=== PATIENT | male | born 1945 | race Caucasian/White ===

== ENCOUNTER → 2016-06-28 | Day surgery (SDC) | payer OTHER ==
--- NOTE | 2016-06-27 17:15 | History & Physical Pre-Op ---
General Information and HPI History of Present Illness: Angel Luis is a 71-year-old diabetic with a long-standing and nonhealing ulceration to the plantar aspect of his foot. Patient is undergone an extended course of conservative care including local intensive wound care. This is consistent of periodic debridements negative pressure wound therapy. The patient will now require a debridement and application of Integra graft with negative pressure wound therapy. Allergies/Medications Allergies: Coded Allergies: No Known Allergies (05/05/16) Home Med list Aspirin (Aspirin*) 81 MG TAB.CHEW 1 TAB PO DAILY HEART HEALTH (Reported) Humulin N (Noa) (Humulin N) 100 UNIT/ML VIAL 34 U SC QPM DIABETES (Reported ) Humulin N (Noa) (Humulin N) 100 UNIT/ML VIAL 25 U SC DAILY DIABETES ( Reported) Hydrochlorothiazide 25 MG TABLET 1 TAB PO DAILY WATER PILL (Reported) Insulin Lispro (Humalog Kwikpen U-100) 100 UNIT/ML INSULN.PEN DIABETES ( Reported) please follow instructions for using insulin sliding scale as per your primary care provider. Lisinopril 5 MG TABLET 1 TAB PO DAILY HEART (Reported) Lovastatin 40 MG TABLET 1 TAB PO QPM CHOLESTEROL (Reported) with food Metformin HCl 500 MG TABLET 1 TAB PO DAILY DIABETES (Reported) Metformin HCl 500 MG TABLET 2 TAB PO QPM DIABETES (Reported) Multivit-Min/FA/Lycopen/Lutein (Centrum Silver Tablet) 0.4 MG-300 MCG-250 MCG TABLET 1 TAB PO DAILY SUPPLEMENT (Reported) [place]-3S/Dha/Epa/Fish Oil (Fish Oil 1,200 MG Softgel) 360-1,200MG CAPSULE 1 CAP PO DAILY SUPPLEMENT (Reported) Past History Medical History Neurological: NONE EENT: NONE Cardiovascular: hypertension, hyperlipidemia Respiratory: NONE Gastrointestinal: NONE Hepatic: NONE Renal: NONE Musculoskeletal: NONE Psychiatric: NONE Endocrine: diabetes Blood Disorders: NONE Cancer(s): NONE 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 History of MRSA: No History of VRE: No History of CDIFF: No Pneumonia Vaccine: 02/26/15 Surgical History Pertinent Surgical History: status post left foot Barone bunionectomy, fifth metatarsal head excision and first metatarsal phalangeal joint debridement 5 years prior to admission status post right foot revision Barone arthroplasty and second toe hammertoe correction Barone 5 years prior to admission status post right sesamoidectomy and hammertoe repair of the third through fifth toes four years prior to admission Past Family/Social History Family History Relations & Conditions if any Relation not specified for: *No pertinent family history Psychosocial History Services at Home None Functional Ability ADLs Independent: dressing, eating, toileting, bathing. Ambulation: independent, cane Review of Systems Review of Systems: Unremarkable except for that noted in history present illness Exam & Diagnostic Data Physical Exam: 6 cm x 4 cm x 1 cm full-thickness wound identified to the plantar aspect of the foot. There are tendinous and capsular structures identified at the superior medial aspect of the foot. No exposed bone identified no probing or undermining identified. There is superficial layer of slough overlying an otherwise granular wound bed. Assessment/Plan Assessment/Plan: Nonhealing ulcer plantar foot. A lengthy discussion reviewing both surgical and conservative options was held the patient at bedside and the patient elects to go forward surgery despite the risks. As Ranked By This Provider Problem List: 1. Cellulitis of foot 2. Non-pressure chronic ulcer of other part of right foot with fat layer exposed Attending MD Review Statement Attending Statement Attending MD Statement: examined this patient
[~2016-06-28] VITALS: Ht 188 cm; Wt 98.9 kg
[~2016-06-28] MED LIST: ASPIRIN81 M4 PO; CENTRUM SILVER1 EAC3 PO; FERROUS SULFAT325 M3 PO; FISH OIL 1,2001 EAC2 PO; HUMALOG KW100 UNIT/1; HUMULIN N100 UNIT/1 SC; HYDROCHLOROTHIA25 M1 PO; KEFLEX500 M1 PO; LISINOPRIL5 M1 PO; LOVASTATIN40 M1 PO; METFORMIN HCL500 M3 PO
--- NOTE | 2016-06-28 12:31 | Operative Report ---
Operative/Inv Procedure Report Surgery Date: 06/28/16 Name of Procedure: 1 open incision and drainage deep to the D fashion with exposure of the flexor tendon and tendon sheath multiple sites right foot 2 intraoperative administration of Integra allograft 3 intraoperative administration of negative pressure wound therapy 4 intraoperative administration of ankle block anesthesia 5 excisional debridement Pre-Operative Diagnosis: 1 open necrotic wound plantar right foot 2 diabetic peripheral neuropathy Post-Operative Diagnosis: Same Estimated Blood Loss: less than 50ml Surgeon/Landfill Gas Collection System Operator: GIOVANNY AGUILAR,ANGEL Martinez DPM Anesthesia: moderate sedation, block Operative/Procedure Note Note: After obtaining informed consent the patient was brought to the operating room and placed on the operating table in the supine position. The patient was then securely fastened to the operating table utilizing safety belt. After administration of IV sedation, 10 mL of 0.5% Marcaine plain was infiltrated about the patient's right ankle. The right foot and ankle within scrubbed prepped and draped in usual aseptic manner. Attention directed plantar aspect the right foot, where a large full-thickness necrotic was identified. A 15 blade [address] sharply revised skin margins. The dissection was then carried down deep to the D fashion with exposure of the flexor tendon and tendon sheath multiple sites, both proximally and distally. All necrotic nonviable and this infected tissue sharply evacuated from the wound bed. Nipple was then irrigated with 3 L Normal sterile saline fissure 50,000 units of bacitracin. Following this, the foot was redraped and the surgeon's top gloves were changed clean gloves. Any bleeding vessels identified were cauterized or ligated as encountered. A 6cm x 6cm Integra graft with applied to the wound bed with skin caleb utilized to stabilize the graft. Negative pressure wound therapy was then applied followed by 4 x 4's Kerlix and Coban. The patient was noted to tolerate both procedure and anesthesia well and the patient was transported from the operating room to recovery by sent stable best assess intact all digits right foot.
== END ==
LOC: STS 01:17
DX: L97.512 Non-pressure chronic ulcer of other part of right foot with fat layer exposed (principal); L03.115 Cellulitis of right lower limb; E11.42 Type 2 diabetes mellitus with diabetic polyneuropathy; Z79.4 Long term (current) use of insulin; I10 Essential (primary) hypertension; E78.5 Hyperlipidemia, unspecified
CPT/HCPCS: 36415; C9363; J0690; J2250

== ENCOUNTER → 2016-07-26 | Day surgery (SDC) | payer OTHER ==
--- NOTE | 2016-07-23 13:19 | History & Physical Pre-Op ---
General Information and HPI History of Present Illness: Mr. Marquez is a 71-year-old diabetic with a history of a long-standing and nonhealing ulceration to the plantar aspect of his right foot. The patient has been seen weekly by me in the wound Center for wound VAC dressing changes. The lesion is noted to measure approximately 8 cm x 6 cm. There has been interval granulation noted and the wound bed is now optimized for definitive closure consisting of split-thickness skin grafting. Allergies/Medications Allergies: Coded Allergies: No Known Allergies (05/05/16) Home Med list Aspirin (Aspirin*) 81 MG TAB.CHEW 1 TAB PO DAILY HEART HEALTH (Reported) Humulin N (Noa) (Humulin N) 100 UNIT/ML VIAL 34 U SC QPM DIABETES (Reported ) Humulin N (Noa) (Humulin N) 100 UNIT/ML VIAL 25 U SC DAILY DIABETES ( Reported) Hydrochlorothiazide 25 MG TABLET 1 TAB PO DAILY WATER PILL (Reported) Insulin Lispro (Humalog Kwikpen U-100) 100 UNIT/ML INSULN.PEN DIABETES ( Reported) please follow instructions for using insulin sliding scale as per your primary care provider. Lisinopril 5 MG TABLET 1 TAB PO DAILY HEART (Reported) Lovastatin 40 MG TABLET 1 TAB PO QPM CHOLESTEROL (Reported) with food Metformin HCl 500 MG TABLET 1 TAB PO DAILY DIABETES (Reported) Metformin HCl 500 MG TABLET 2 TAB PO QPM DIABETES (Reported) Multivit-Min/FA/Lycopen/Lutein (Centrum Silver Tablet) 0.4 MG-300 MCG-250 MCG TABLET 1 TAB PO DAILY SUPPLEMENT (Reported) [place]-3S/Dha/Epa/Fish Oil (Fish Oil 1,200 MG Softgel) 360-1,200MG CAPSULE 1 CAP PO DAILY SUPPLEMENT (Reported) Past History Medical History Neurological: NONE EENT: NONE Cardiovascular: hypertension, hyperlipidemia Respiratory: NONE Gastrointestinal: NONE Hepatic: NONE Renal: NONE Musculoskeletal: NONE Psychiatric: NONE Endocrine: diabetes Blood Disorders: NONE Cancer(s): 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 History of MRSA: No History of VRE: No History of CDIFF: No Pneumonia Vaccine: 02/26/15 Surgical History Pertinent Surgical History: status post left foot Barone bunionectomy, fifth metatarsal head excision and first metatarsal phalangeal joint debridement 5 years prior to admission status post right foot revision Barone arthroplasty and second toe hammertoe correction Barone 5 years prior to admission status post right sesamoidectomy and hammertoe repair of the third through fifth toes four years prior to admission Past Family/Social History Family History Relations & Conditions if any Relation not specified for: *No pertinent family history Psychosocial History Services at Home None Functional Ability ADLs Independent: dressing, eating, toileting, bathing. Ambulation: independent, cane Review of Systems Review of Systems: Unremarkable except for that noted in history of present illness Exam & Diagnostic Data Physical Exam: Lungs clear bilaterally. Heart sounds rate and rhythm regular. Lower extremity physical exam demonstrates weakly palpable pulses bilaterally. Both the results pedis and posterior tibial arteries demonstrate a 1/4 pulse. Patient is noted to have an 8 cm x 6 cm Hercules grade 2 ulceration to the plantar aspect of his right foot. The wound bed is noted to the deformity granular. There is a superficial layer of slough overlying the wound bed. No probing or undermining identified. No cellulitis noted. Minimal serous drainage identified. Assessment/Plan Assessment/Plan: Nonhealing ulcer plantar right foot. After lengthy discussion reviewing both surgical and conservative options, the patient elects to go forward surgery despite the risks. As Ranked By This Provider Problem List: 1. Non-pressure chronic ulcer of other part of right foot with fat layer exposed Attending MD Review Statement Attending Statement Attending MD Statement: examined this patient
[~2016-07-26] VITALS: Ht 188 cm; Wt 98.9 kg
--- NOTE | 2016-07-26 14:04 | Operative Report ---
Operative/Inv Procedure Report Surgery Date: 07/26/16 Name of Procedure: 1 split-thickness skin graft right foot 2 negative pressure wound therapy right foot 3 intraoperative administration of ankle block anesthesia Pre-Operative Diagnosis: 1 nonhealing ulcer plantar right foot 2 diabetic peripheral neuropathy Post-Operative Diagnosis: The same Estimated Blood Loss: scant Surgeon/Pleating Machine Operator: GIOVANNY AGUILAR,ANGEL Martinez DPM Anesthesia: moderate sedation, block Operative/Procedure Note Note: After obtaining informed consent the patient was brought to the operating room and placed on the operating table in the supine position. The patient isn't securely fastened to the operating table utilizing safety belt. After administration of IV sedation, 10 mL of 0.5% Marcaine plain was infiltrated about the patient's right ankle. The right foot ankle and leg were then scrubbed prepped and draped in usual aseptic manner. Attention was then directed to the plantar aspect of the right foot, where a 6 cm x 6 cm full- thickness Hercules grade 2 ulceration was identified. There is superficial slough overlying an otherwise granular wound bed. No probing or undermining identified. No cellulitis. An awl serous drainage noted. A curet was utilized to debride the wound bed and it was then irrigated with 3 L of normal sterile saline fissure 50,000 units of bacitracin. Following this, a 17 1007 inch split -thickness skin graft was elevated off the lateral leg and meshed at a ratio of 1-1/2-1. The skin graft was then placed at the recipient site and fixated at its margins with skin caleb followed by Adaptic and negative pressure wound therapy. The donor site was dressed with bacitracin Xeroform Kerlix and an [place] wrap. The patient was noted tolerate both procedure and anesthesia well and the patient was transported from the operating room to recovery by sent stable best assess intact all digits right foot.
== END ==
LOC: STS 01:39
DX: E11.621 Type 2 diabetes mellitus with foot ulcer (principal); E11.42 Type 2 diabetes mellitus with diabetic polyneuropathy; L97.512 Non-pressure chronic ulcer of other part of right foot with fat layer exposed; Z79.4 Long term (current) use of insulin; I10 Essential (primary) hypertension
CPT/HCPCS: J2001; J2250

== ENCOUNTER 2016-12-07 11:52 | Inpatient (IN) | payer OTHER ==
[~2016-12-07] VITALS: Ht 188 cm; Wt 101.6 kg
[~2016-12-07 11:52] MED LIST changes: -HUMALOG KW100 UNIT/1; +NOVOLOG FL100 UNIT/1 SC
--- NOTE | 2016-12-07 12:07 | ED UPPER/LOWER EXTREMITY COMPL ---
History of Present Illness General Chief Complaint: Lower Extremity Problems Stated Complaint: SIB MD PANDEY FOR INFECTION IN R FOOT Source: patient Exam Limitations: no limitations Vital Signs & Intake/Output Vital Signs & Intake/Output Vital Signs Date Time Temp Pulse Resp B/P B/P Pulse O2 O2 Flow FiO2 Mean Ox Delivery Rate 12/07 1552 99.4 80 16 135/72 98 Room Air 12/07 1159 100.0 97 18 123/74 97 Room Air Allergies Coded Allergies: No Known Allergies (05/05/16) Reconcile Medications Ascorbate Calcium (Vitamin C) 500 MG TABLET 1 TAB PO DAILY VITAMIN SUPPORT ( Reported) Aspirin (Aspirin*) 81 MG TAB.CHEW 1 TAB PO DAILY HEART HEALTH (Reported) Ferrous Sulfate 325 MG (65 MG IRON) TABLET 1 TAB PO DAILY SUPPLEMENT ( Reported) Humulin N (Noa) (Humulin N) 100 UNIT/ML VIAL 34 U SC QPM DIABETES (Reported ) Humulin N (Noa) (Humulin N) 100 UNIT/ML VIAL 25 U SC DAILY DIABETES ( Reported) Hydrochlorothiazide 25 MG TABLET 1 TAB PO DAILY WATER PILL (Reported) Insulin Aspart, Recombinant (Novolog Flexpen) (Unknown Strength) INSULN.PEN ( Unknown Dose) SC SEE SLIDING SCALE DIABETES (Reported) Lisinopril 5 MG TABLET 1 TAB PO DAILY HEART (Reported) Lovastatin 40 MG TABLET 1 TAB PO QPM CHOLESTEROL (Reported) with food Metformin HCl 500 MG TABLET 1 TAB PO DAILY DIABETES (Reported) Metformin HCl 500 MG TABLET 2 TAB PO QPM DIABETES (Reported) Multivit-Min/FA/Lycopen/Lutein (Centrum Silver Tablet) 0.4 MG-300 MCG-250 MCG TABLET 1 TAB PO DAILY SUPPLEMENT (Reported) [place]-3S/Dha/Epa/Fish Oil (Fish Oil 1,200 MG Softgel) 360-1,200MG CAPSULE 1 CAP PO DAILY SUPPLEMENT (Reported) Triage Note: 71 YO MALE TO ER C/O FEVERS AND ?INFECTION TO R FOOT. [facility] HAD FOOT SURGERY IN [facility] AND THEY REMOVED "SOME OF THE BOTTOM OF THE FOOT" STATES HE SAW DR BALTAZAR ON MONDAY WHO SAID IT WAS OK, STATES WENT TO HIS [employer] PROBATION OFFICER TODAY WHO SAID HE HAD A FEVER AND NEEDED TO COME IN FOR IV ANTIBIOTICS. TEMP 100.0 AT THIS TIME. R FOOT WRAPPPED IN TRIAGE AND NOT ABLE TO BE SEEN. Triage Nurses Notes Reviewed? yes Onset: Gradual Duration: constant Timing: single episode today Severity: moderate Severity Numbers: 5 HPI: Patient is a 71-year-old male with a past medical history of type 2 diabetes, hypertension hyperlipidemia and peripheral neuropathy where it was noted that in May 2016 patient had an incision and drainage to the right plantar aspect of foot by Dr. Baltazar in which approximately one month later he received a skin graft in the dictation of the procedure up report is noted below: Operative/Inv Procedure Report Surgery Date: 06/28/16 Name of Procedure: 1 open incision and drainage deep to the D fashion with exposure of the flexor tendon and tendon sheath multiple sites right foot 2 intraoperative administration of Integra allograft 3 intraoperative administration of negative pressure wound therapy 4 intraoperative administration of ankle block anesthesia 5 excisional debridement Pre-Operative Diagnosis: 1 open necrotic wound plantar right foot 2 diabetic peripheral neuropathy Post-Operative Diagnosis: Operative/Inv Procedure Report Surgery Date: 07/26/16 Name of Procedure: 1 split-thickness skin graft right foot 2 negative pressure wound therapy right foot 3 intraoperative administration of ankle block anesthesia Pre-Operative Diagnosis: 1 nonhealing ulcer plantar right foot 2 diabetic peripheral neuropathy Post-Operative Diagnosis: The same Estimated Blood Loss: scant Surgeon/Court Of Appeals Judge: GIOVANNY AGUILAR,ANGEL Martinez DPM Anesthesia: moderate sedation, block Patient states that he has been receiving wound care by a authorization representative Dr. Baltazar and authorization representative Dr. PANDEY where on Monday DR. PANDEY told patient that the wound is well-healing however in the last 24 hours patient has been developing swelling redness and a fever was noted today in the podiatry office at 102 Fahrenheit. Patient was strongly advised to present to the emergency room. No history of osteomyelitis. Denies any pain (BRANDON GARCIA) Past History Travel History Traveled to [place] past 21 day No Medical History Any Pertinent Medical History? 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 History of MRSA: No History of VRE: No History of CDIFF: No Pneumonia Vaccine: 02/26/15 Surgical History Surgical History: status post left foot Barone bunionectomy, fifth metatarsal head excision and first metatarsal phalangeal joint debridement 5 years prior to admission status post right foot revision Barone arthroplasty and second toe hammertoe correction Barone 5 years prior to admission status post right sesamoidectomy and hammertoe repair of the third through fifth toes four years prior to admission Psychosocial History Who do you live with Spouse Services at Home None What is your primary language Armenian Tobacco Use: Current Daily Use Daily Tobacco Use Amount/Type: =< 4 Cigarettes daily Family History Family History, If Any: Relation not specified for: *No pertinent family history Hx Contributory? No (BRANDON GARCIA) Review of Systems Review of Systems Constitutional: Reports: see HPI, fever. EENTM: Reports: no symptoms. Respiratory: Reports: no symptoms. Cardiovascular: Reports: no symptoms. Gastrointestinal/Abdominal: Reports: no symptoms. Genitourinary: Reports: no symptoms. Musculoskeletal: Reports: see HPI. Skin: Reports: see HPI. Neurological/Psychological: Reports: no symptoms. Hematologic/Endocrine: Reports: no symptoms. Immunological: Reports: no symptoms. All Other Systems: Reviewed and Negative (BRANDON GARCIA) Physical Exam Physical Exam General Appearance: no apparent distress, alert, comfortable Head: atraumatic Neurologic/Tendon: normal tendon functions, no evidence tendon injury Skin: warm/dry Comments: Well-developed well-nourished no apparent distress. HEENT: Atraumatic, extraocular motion intact Neck: Supple, no lymphadenopathy Back: Nontender Respiratory: No respiratory distress Neuro: Alert and oriented x3 Psych: Mood affect normal, normal memory normal judgment. Diagram Feet Bottom 1) Noted 3 cm open skin ulcer with noted surrounding erythema warmth and tenderness mild purulent discharge noted (BRANDON GARCIA) Progress Differential Diagnosis: arterial insufficiency, cellulitis, CHF, compartment syndrome, contusion, dislocation, DVT, fracture, gout, septic arthritis, sprain, tendon injury, OSTEOMYELITIS Plan of Care: Orders Procedure Date/time Status Consistent Carbohydrate 2 12/07 D Active LACTIC ACID 12/07 1533 Active Pathway - chart 12/07 1531 Active House Staff 12/07 1531 Active Patient Data 12/07 1531 Active CBC WITHOUT DIFFERENTIAL 12/07 1531 Active BASIC ELECTROLYTES PLUS BUN&CR 12/07 1531 Active Add-on Test (ER Only) 12/07 1528 Active URINE OSMOLALITY 12/07 1528 Active URINE LYTES, SPOT 12/07 1528 Active URINALYSIS 12/07 1528 Active Patient Data 12/07 1513 Active EKG 12/07 1441 Active OXYGEN SETUP (GEN) 12/07 1424 Active Saline Lock 12/07 1424 Active Admit to inpatient 12/07 1424 Active Vital Signs 12/07 1424 Active Activity/Ambulation 12/07 1424 Active Code Status 12/07 1424 Active Intake & Output 12/07 1410 Active MRI-RT FOOT W/O ALFIE 12/07 1345 Active SERUM OSMOLALITY 12/07 1240 Complete BLOOD CULTURE 12/07 1233 Active LACTIC ACID 12/07 1233 Complete C-REACTIVE PROTEIN 12/07 1233 Complete COMPREHENSIVE METABOLIC PANEL 12/07 1233 Complete CBC WITHOUT DIFFERENTIAL 12/07 1233 Complete VTE Mechanical Prophylaxis 12/07 UNK Active Current Medications Sig/Ruth Start time Last Medication Dose Stop Time Status Admin Enoxaparin Sodium 40 MG DAILY 12/08 1000 AC (Lovenox) Acetaminophen 650 MG Q6P PRN 12/07 1530 AC (Tylenol) Ibuprofen 600 MG Q6P PRN 12/07 1530 AC (Motrin) Morphine Sulfate 1 MG Q6-PRN PRN 12/07 1530 AC (Morphine) Laboratory Tests 12/07/16 1240: Anion Gap 13, Estimated GFR > 60, BUN/Creatinine Ratio 18.6, Glucose 242 H, Serum Osmolality 276 L, Lactic Acid 2.1, Calcium 9.3, Total Bilirubin 0.6, AST 36, ALT 38, Alkaline Phosphatase 58, C-Reactive Prot, Quant 8.4 H, Total Protein 7.2, Albumin 4.2, Globulin 3.0, Albumin/Globulin Ratio 1.4, CBC w Diff NO MAN DIFF REQ, RBC 4.64 L, MCV 79.0 L, MCH 26.1 L, RDW 16.3 H, MPV 8.6, Gran % 82.0 H, Lymphocytes % 6.8 L, Monocytes % 10.5 H, Eosinophils % 0, Basophils % 0.7, Absolute Granulocytes 11.1 H, Absolute Lymphocytes 0.9 L, Absolute Monocytes 1.4 H, Absolute Eosinophils 0, Absolute Basophils 0.1, PUBS MCHC 33.1 Microbiology 12/07 1311 BLOOD: Blood Culture - RECD 12/07 1240 BLOOD: Blood Culture - RECD Discussed patient with Dr. Baltazar who is aware of patient's admission and which x-ray shows erosive changes of the bone patient has also redness swelling and discharged to the chronic open ulcer on patient's right plantar foot. Antibiotics at this time will be withheld (BRANDON GARCIA) Diagnostic Imaging: Viewed by Me: Radiology Read. Radiology Impression: acute abnormality Comments: PATIENT: BRANDON CARMEN PRESENT AGE: 71 PATIENT ACCOUNT NO: [id number] : 47 LOCATION: [facility] ORDERING PHYSICIAN: BRANDON LANG SERVICE DATE: 12/07/16 EXAM TYPE: RAD - XRY-FOOT COMPLETE, R EXAMINATION: XR FOOT, RIGHT CLINICAL INFORMATION: Open wound over plantar second-fourth metatarsals. Evaluate for osteomyelitis. COMPARISON: Radiographs of the foot from 06/08/2016. MR images of the foot from 05/02/2016. TECHNIQUE: Right foot, 3 views FINDINGS: There is chronic hyperextension of the great toe metatarsophalangeal joint. Again noted are chronic deformities of the 2nd - 5th proximal interphalangeal joints, possibly due to remote surgical arthroplasties. Compared to 06/08/2016, there are new erosions of the third metatarsal head and base of the third proximal phalanx with new lateral displacement of the phalanx. Erosions have relatively sharply defined borders, which suggests these are not acute erosions. No soft tissue emphysema. There is generalized soft tissue swelling of the forefoot. IMPRESSION: Compared to 06/08/2016, there are new metatarsal and phalangeal erosions of the third metatarsophalangeal joint, suspicious for septic arthritis and osteomyelitis. (BRANDON GARCIA) Departure Departure Disposition: STILL A PATIENT Condition: Critical Clinical Impression Primary Impression: Osteomyelitis of right foot Referrals: AMOS SESAY MD (PCP/Family) Departure Forms: Customer Survey General Discharge Information Admission Note Spoke With: NAN JOSEPH MD Documentation of Exam: Documentation of any treatments & extenuating circumstances including Concerns Regarding Discharge (functional status, medication knowledge or non-compliance, living conditions, etc.) that warrant an admission rather than observation: [ Discussed admission with who agrees for general admission for concerns of osteomyelitis which patient requires MRI bone culture, IV antibiotics, podiatry consultation and infectious disease consultation.] (BRANDON GARCIA) PA/PAPER SHEETER Co-Sign Statement Statement: ED Attending supervision documentation- x I saw and evaluated the patient. I have also reviewed all the pertinent lab results and diagnostic results. I agree with the findings and the plan of care as documented in the PA's/PAPER SHEETER's documentation. [] I have reviewed the ED Record and agree with the PA's/PAPER SHEETER's documentation. [] Additions or exceptions (if any) to the PAs/PAPER SHEETER's note and plan are summarized below: [] (JASS ALVAREZ,INDU) Critical Care Note Critical Care Note Critical Care Time: 30-74 min (BRANDON GARCIA)
[2016-12-07] MEDS ORDERED: FERROUS SULFAT325 M3 PO (12:22)
[2016-12-07] MEDS ORDERED: VITAMIN C500 M6 PO (12:22)
--- NOTE | 2016-12-07 13:14 | RADIOLOGY REPORT ---
EXAMINATION: XR FOOT, RIGHT CLINICAL INFORMATION: Open wound over plantar second-fourth metatarsals. Evaluate for osteomyelitis. COMPARISON: Radiographs of the foot from 06/08/2016. MR images of the foot from 05/02/2016. TECHNIQUE: Right foot, 3 views FINDINGS: There is chronic hyperextension of the great toe metatarsophalangeal joint. Again noted are chronic deformities of the 2nd - 5th proximal interphalangeal joints, possibly due to remote surgical arthroplasties. Compared to 06/08/2016, there are new erosions of the third metatarsal head and base of the third proximal phalanx with new lateral displacement of the phalanx. Erosions have relatively sharply defined borders, which suggests these are not acute erosions. No soft tissue emphysema. There is generalized soft tissue swelling of the forefoot. IMPRESSION: Compared to 06/08/2016, there are new metatarsal and phalangeal erosions of the third metatarsophalangeal joint, suspicious for septic arthritis and osteomyelitis.
[2016-12-07 13:18] LABS: ABSOLUTE BASOPHIL COUNT 0.1 /CUMM (0.0-0.2); ABSOLUTE EOSINOPHIL COUNT 0 /CUMM (0.0-0.7); ABSOLUTE GRANULOCYTE CT 11.1 /CUMM (1.4-6.5); ABSOLUTE LYMPH COUNT 0.9 /CUMM (1.2-3.4); ABSOLUTE MONOCYTE COUNT 1.4 /CUMM (0.10-0.60); BASOPHIL % 0.7 % (0.0-2.0); EOSINOPHIL % 0 % (0-5); HEMATOCRIT 36.6 % (42-52); MEAN CORPUSCULAR HGB 26.1 PG (27.0-31.0); MEAN CORPUSCULAR HGB CONC 33.1 G/DL (33.0-37.0); MEAN PLATELET VOLUME 8.6 FL (7.4-10.4); PLATELET COUNT 436 /CUMM (130-400); RBC DISTRIBUTION WIDTH 16.3 % (11.5-14.5); RED BLOOD CELL CT 4.64 /CUMM (4.70-6.10); WHITE BLOOD CELL COUNT 13.5 /CUMM (4.8-10.8)
--- NOTE | 2016-12-07 16:53 | MRI REPORT ---
EXAMINATION: MRI FOOT WITHOUT CONTRAST, RIGHT CLINICAL INFORMATION: Right plantar foot osteomyelitis. COMPARISON: Radiographs 12/07/2016. MRI 05/02/2016. TECHNIQUE: MRI without contrast is performed on the right foot. Image quality is degraded by patient motion artifact. No contrast was administered. FINDINGS: There is a large complex effusion of the 3rd MTP joint with erosion, edema and loss of T1 marrow signal involving the 3rd metatarsal head and the proximal phalanx compatible with a septic joint and osteomyelitis. Marrow edema extends to the proximal aspect of the 3rd metatarsal. Complex fluid from the 3rd MTP joint extends medially along the plantar aspect of the 2nd MTP joint, likely communicating with the joint, presumably a septic joint as well although no convincing evidence of associated osteomyelitis. There is marrow edema at the plantar aspect of the 4th metatarsal head which may be reactive although early osteomyelitis cannot be excluded. [id number] 1st MTP joint and hallux sesamoid osteoarthritis. The joint is held in near 90 degrees of extension. Diffuse edema as well as fatty atrophy of the intrinsic muscles of the foot and along the dorsal subcutaneous fat which could represent extension of soft tissue infection. This is similar to the previous study. IMPRESSION: Progression since 05/02/2016, now with evidence of a septic 3rd MTP joint with osteomyelitis of the metatarsal head and proximal phalanx. The fluid collection extends along the plantar aspect medially, with a probable septic arthritis of the 2nd MTP joint although no convincing evidence of an associated osteomyelitis of this joint. There is marrow edema at the plantar aspect of the 4th metatarsal head which may be reactive although early osteomyelitis cannot be excluded.
--- NOTE | 2016-12-07 17:29 | History & Physical ---
YI ALVAREZ,SOPHIA 12/07/16 5072: General Information and HPI History of Present Illness: Pt is a 71 y/o male with PMH of DM recent HbA1c: 8.1, peripheral neuopathy, h/o of osteomyelitis of R foot in 2015 requiring debridement, IV antibiotic therapy and skin grafting in May 2016 presents to the ED with foul smelling discharge at site of skin graft. Pt sees Dr. Jones and Dr. Singh for treatment of his feet. Pt was sent from Dr. Singh's office. Pt states there was increased discharge that was foul smelling when assessed by Dr. Singh. Pt's temp in the office was 102. Pt states he has had chills and sweats. Denies trauma to the foot however pt states he is unable to feel the bottom of his feet. Pt denies chest pain, SOB, n/v/c/d or urinary symptoms. In the ED: 100.0, pulse 97, sedimentation rate 18, blood pressure 123/74 on room air. Pertinent labs on admission leukocytosis: 13.5, H&H low but stable. Hyponatremia 129, blood glucose level :249, normal lactic acid on admission Right foot x-ray: Compared to 06/08/2016, there are new metatarsal and phalangeal erosions of the third metatarsophalangeal joint, suspicious for septic arthritis and osteomyelitis. Allergies/Medications Allergies: Coded Allergies: No Known Allergies (05/05/16) Home Med list Ascorbate Calcium (Vitamin C) 500 MG TABLET 1 TAB PO DAILY VITAMIN SUPPORT ( Reported) Aspirin (Aspirin*) 81 MG TAB.CHEW 1 TAB PO DAILY HEART HEALTH (Reported) Ferrous Sulfate 325 MG (65 MG IRON) TABLET 1 TAB PO DAILY SUPPLEMENT ( Reported) Humulin N (Noa) (Humulin N) 100 UNIT/ML VIAL 34 U SC QPM DIABETES (Reported ) Humulin N (Noa) (Humulin N) 100 UNIT/ML VIAL 25 U SC DAILY DIABETES ( Reported) Hydrochlorothiazide 25 MG TABLET 1 TAB PO DAILY WATER PILL (Reported) Insulin Aspart, Recombinant (Novolog Flexpen) (Unknown Strength) INSULN.PEN ( Unknown Dose) SC SEE SLIDING SCALE DIABETES (Reported) Lisinopril 5 MG TABLET 1 TAB PO DAILY HEART (Reported) Lovastatin 40 MG TABLET 1 TAB PO QPM CHOLESTEROL (Reported) with food Metformin HCl 500 MG TABLET 1 TAB PO DAILY DIABETES (Reported) Metformin HCl 500 MG TABLET 2 TAB PO QPM DIABETES (Reported) Multivit-Min/FA/Lycopen/Lutein (Centrum Silver Tablet) 0.4 MG-300 MCG-250 MCG TABLET 1 TAB PO DAILY SUPPLEMENT (Reported) [place]-3S/Dha/Epa/Fish Oil (Fish Oil 1,200 MG Softgel) 360-1,200MG CAPSULE 1 CAP PO DAILY SUPPLEMENT (Reported) Past History Travel History Traveled to [place] past 21 day No Medical History Neurological: NONE EENT: NONE Cardiovascular: hypertension, hyperlipidemia Respiratory: NONE Gastrointestinal: NONE Hepatic: NONE Renal: NONE Musculoskeletal: NONE Psychiatric: NONE Endocrine: diabetes Blood Disorders: NONE Cancer(s): 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 History of MRSA: No History of VRE: No History of CDIFF: No Pneumonia Vaccine: 02/26/15 Surgical History Surgical History: status post left foot Barone bunionectomy, fifth metatarsal head excision and first metatarsal phalangeal joint debridement 5 years prior to admission status post right foot revision Barone arthroplasty and second toe hammertoe correction Barone 5 years prior to admission status post right sesamoidectomy and hammertoe repair of the third through fifth toes four years prior to admission Past Family/Social History Family History Relations & Conditions if any Relation not specified for: *No pertinent family history Psychosocial History Services at Home: None Functional Ability ADLs Independent: dressing, eating, toileting, bathing. Ambulation: independent, cane Review of Systems Review of Systems Constitutional: Reports: see HPI, chills, diaphoresis, fever. Cardiovascular: Denies: chest pain. Respiratory: Denies: short of breath. GI: Denies: abdominal pain, constipation, diarrhea, nausea. Genitourinary: Denies: no symptoms. Exam & Diagnostic Data Last 24 Hrs of Vital Signs/I&O Vital Signs Date Time Temp Pulse Resp B/P B/P Pulse O2 O2 Flow FiO2 Mean Ox Delivery Rate 12/07 2150 99.8 74 19 114/62 96 Room Air 12/07 1812 99.8 83 19 122/68 96 Room Air 12/07 1743 100.4 90 20 142/68 98 Room Air 12/07 1552 99.4 80 16 135/72 98 Room Air 12/07 1159 100.0 97 18 123/74 97 Room Air Intake & Output 12/08 0800 0713 0000 12/07 1600 Intake Total 480 1000 Output Total 475 Balance 5 1000 Intake, IV 1000 Intake, Oral 480 Output, Urine 475 Patient 224 lb 224 lb Weight Weight Reported by Patient Reported by Patient Measurement Method Physical Exam General Appearance Alert, Oriented X3, Cooperative, No Acute Distress HEENT Atraumatic, PERRLA, EOMI, Mucous Membr. moist/pink Cardiovascular Regular Rate, Normal S1, Normal S2 Lungs Clear to Auscultation Abdomen Normal Bowel Sounds, Soft, No Tenderness Neurological Normal Speech, Strength at 5/5 X4 Ext, Normal Tone, Cranial Nerves 3-12 NL, pt has decreased sensation to touch up to ankle on R foot and has no sensation on plantar surface of L foot. Extremities No Edema, Normal Pulses, ulcer with no active drainage and minimal blood seen on dressing Vascular Normal Pulses Assessment/Plan Assessment: Pt is a 71 y/o male with PMH significant for DM (HbA1c: 8.1), peripheral neuropathy, previous history of osteomyelitis on R foot w/skin graft admitted to ED for increase foul smelling discharge from site of previous skin graft and fever. Pt admitted to the general medical floor for management of the followin. Possible osteomyelitis of R foot vs nonhealing ulcer/cellulitis - Xray shows new bony changes indicative for septive arthritis or osteomyelitis. - MRI shows Progression since 05/02/2016, now with evidence of a septic 3rd MTP joint with osteomyelitis of the metatarsal head and proximal phalanx. The fluid collection extends along the plantar aspect medially, with a probable septic arthritis of the 2nd MTP joint although no convincing evidence of an associated osteomyelitis of this joint. There is marrow edema at the plantar aspect of the 4th metatarsal head which may be reactive although early osteomyelitis cannot be excluded - Dr. Jones has been notified - Trend WBC: currently 13.2, lactic acid: 2.0 CRP: 8.4 - Check ESR - No antibiotics and keep NPO in preparation for possible surgery tomorrow 2. Euvolemic Hyponatremia: - pt's current Na: 129 with low serum osmolality: 276 indicating true hyponatremia - previous admission Na: 134 - urine lytes and urine osmolality 3. H/O DM - start on novology SS w/ accu-checks - NPO after midnight, start pt on NPO, insulin SS w/ D5 1/2NS 4. H/O HTN - continue home meds 5. H/O HLD - continue home meds DVT PPx: Lovenox - held for possible surgery tomorrow, use ALPs Diet: carbohydrate Code: Full - As Ranked By This Provider Problem List: 1. Osteomyelitis of right foot 2. Hyponatremia 3. Diabetes 4. Hypertension Core Measures/Miscellaneous Cerebrovascular Accident CVA/TIA Diagnosis: No Congestive Heart Failure CHF Diagnosis: No VTE (View Protocol) VTE Risk Factors: Age > 40 No Mech VTE prophylaxis d/t: VTE low risk No VTE Pharm Prophylaxis d/t: Surgical contraindication VTE Diagnosis: No VTE Type: NONE VTE Confirmed by (Test): NONE Sepsis (View Protocol) Severe Sepsis Present: No BC x2: Yes Lactic Acid x2: Yes IV ABX Broad Spectrum: No Septic Shock Septic Shock Present: No Miscellaneous Documentation Attending Case Discussed With: NAN JOSEPH MD Primary Care Physician: AMOS SESAY MD Level of Patient Care: General Surgical Consults Needed: Consulting Specialty: Podiatry Consulting Physician: ISAURA Canchola 12/07/16 1732: Core Measures/Miscellaneous Acute Coronary Syndrome ACS Diagnosis: No Miscellaneous Documentation Patient sees these Specialists Not available at this time Resident Review Statement Resident Statement: examined this patient, discussed with technology risk intern, agreed with technology risk intern Other Findings: Patient is a 71-year-old gentleman with a past medical history significant for insulin-dependent diabetes mellitus complicated by peripheral neuropathy, nonhealing ulcer secondary to osteomyelitis of the right foot status post surgical debridement and skin graft, history of hypertension and hyperlipidemia was sent in to the ED from 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 As mentioned above patient was diagnosed with right foot osteomyelitis in April 2016 had a surgical debridement done and was discharged home for appropriate for 4 weeks of iv antibiotics. Patient had skin graft of wound done in May this year. Patient was last seen by Dr. Peters this Monday, who told him that wound is healing well. Today he was seen at his other form designer office Dr. Sanchez, and he was found to be febrile to 102 and the wound also seem to be infected, so was sent to the ED for further evaluation. In the ED patient did not report any recent trauma any recent infections. He reported some chills without any fever. Other review of system was negative. Vitals on admission temperature 100.0, pulse 97, sedimentation rate 18, blood pressure 123/74 on room air. General Appearance: Alert, No Acute Distress Skin: Grossly normal HEENT: PEERLA Neck: Supple, No JVD Cardiovascular: Regular Rate, Normal S1, Normal S2, No Murmurs Lungs: Lungs clear to auscultation bilaterally on exam. Abdomen: Normal Bowel Sounds, Soft, No Tenderness Neurological: Normal Speech, Strength at 5/5 X4 Ext, Cranial Nerves 3-12 NL, Reflexes 2+ Extremities: ulcer on the bottom of the right foot without any drainage Vascular: Normal Pulses Pertinent labs on admission leukocytosis: 13.5, H&H low but stable. Hyponatremia 129, blood glucose level :249, normal lactic acid on admission Right foot x-ray :Compared to 06/08/2016, there are new metatarsal and phalangeal erosions of the third metatarsophalangeal joint, suspicious for septic arthritis and osteomyelitis. Assessment and plan Patient is a 71-year-old gentleman with a past medical history significant for insulin-dependent diabetes mellitus complicated by peripheral neuropathy, nonhealing ulcer secondary to osteomyelitis, history of hypertension and lipidemia presented to the ED for the evaluation of infection of the wound on the right foot. Problem list Possible osteomyelitis of the right foot Euvolemic Hyponatremia History of insulin-dependent diabetes mellitus History of hypertension hyperlipidemia plan : Possible osteomyelitis of the right foot * Admit the patient to [facility] floor. * Dr. Lima has been informed about patient's admission, he will see the pt . * Check ESR * Patient had an MRI of the right foot we'll follow-up the results * Keep the patient off antibiotics for now for possible surgical intervention tomorrow. * Keep the patient nothing by mouth at midnight. Euvolemic Hyponatremia * Check urine lites and urine osmolality and serum hospitality History of insulin-dependent diabetes mellitus * Start the patient on NovoLog sliding scale with Accu-Cheks. * Equivalent conversion of home dose of Humalog(25 units of Levemir in the morning and 32 units at bedtime. * Nothing by mouth from midnight start the patient on nothing by mouth insulin sliding scale with D5 half normal saline History of hypertension hyperlipidemia * Continue with home dose of lisinopril and lovastatin. Mild to moderate pain controlled with oxycodone and IV morphine DVT prophylaxis with subcutaneous Lovenox(hold Lovenox for possible biopsy tomorrow/surgical intervention) Patient full code JAKE ALVAREZNAN 12/08/16 1339: Attending MD Review Statement Attending Statement Attending MD Statement: examined this patient, discuss w/resident/PA/WEB UI DESIGNER, agreed w/resident/PA/WEB UI DESIGNER, reviewed EMR data (avail) Attending Assessment/Plan: 71M HTN, DM, chronic lower extremity ulcers, history of osteomyelitis of the foot growing Group B step and coag negative staph, presenting now with edema and erythema to a chronic right foot ulcer with fever 102 in form designer office ( afebrile here), WBC 13.5. Admitted for likely osteomyelitis. Ordered MRI, podiatry consult, holding antibiotics, ID consult, glucose control.
--- NOTE | 2016-12-07 17:48 | Cons- Podiatry ---
General Information and HPI Consulting Request Date of Consult: 12/07/16 Requested By: NAN JOSEPH MD History of Present Illness: Angel Luis is a 71-year-old male with a history of diabetes and a long-standing nonhealing ulceration plantar aspect of his right foot. The patient presented months ago with a plantar space abscess and underwent an open I&D. He underwent local intensive wound care, including periodic debridements, negative pressure wound therapy and total contact casting. The patient was apparently progressing well, until he developed redness and swelling on Monday with subjective chills and fever. 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 Allergies/Medications Allergies: Coded Allergies: No Known Allergies (05/05/16) Home Med List: Ascorbate Calcium (Vitamin C) 500 MG TABLET 1 TAB PO DAILY VITAMIN SUPPORT ( Reported) Aspirin (Aspirin*) 81 MG TAB.CHEW 1 TAB PO DAILY HEART HEALTH (Reported) Ferrous Sulfate 325 MG (65 MG IRON) TABLET 1 TAB PO DAILY SUPPLEMENT ( Reported) Humulin N (Noa) (Humulin N) 100 UNIT/ML VIAL 34 U SC QPM DIABETES (Reported ) Humulin N (Noa) (Humulin N) 100 UNIT/ML VIAL 25 U SC DAILY DIABETES ( Reported) Hydrochlorothiazide 25 MG TABLET 1 TAB PO DAILY WATER PILL (Reported) Insulin Aspart, Recombinant (Novolog Flexpen) (Unknown Strength) INSULN.PEN ( Unknown Dose) SC SEE SLIDING SCALE DIABETES (Reported) Lisinopril 5 MG TABLET 1 TAB PO DAILY HEART (Reported) Lovastatin 40 MG TABLET 1 TAB PO QPM CHOLESTEROL (Reported) with food Metformin HCl 500 MG TABLET 1 TAB PO DAILY DIABETES (Reported) Metformin HCl 500 MG TABLET 2 TAB PO QPM DIABETES (Reported) Multivit-Min/FA/Lycopen/Lutein (Centrum Silver Tablet) 0.4 MG-300 MCG-250 MCG TABLET 1 TAB PO DAILY SUPPLEMENT (Reported) [place]-3S/Dha/Epa/Fish Oil (Fish Oil 1,200 MG Softgel) 360-1,200MG CAPSULE 1 CAP PO DAILY SUPPLEMENT (Reported) Past History Medical History Neurological: NONE EENT: NONE Cardiovascular: hypertension, hyperlipidemia Respiratory: NONE Gastrointestinal: NONE Hepatic: NONE Renal: NONE Musculoskeletal: NONE Psychiatric: NONE Endocrine: diabetes Blood Disorders: NONE Cancer(s): 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 Surgical History Pertinent Surgical History: status post left foot Barone bunionectomy, fifth metatarsal head excision and first metatarsal phalangeal joint debridement 5 years prior to admission status post right foot revision Barone arthroplasty and second toe hammertoe correction Barone 5 years prior to admission status post right sesamoidectomy and hammertoe repair of the third through fifth toes four years prior to admission Family History Relations & Conditions If Any: Relation not specified for: *No pertinent family history Psychosocial History Services at Home: None Functional Ability ADLs Independent: dressing, eating, toileting, bathing. Ambulation: independent, cane Review of Systems Review of Systems: Unremarkable except noted history of present illness Exam & Diagnostic Data Vital Signs and I&O Vital Signs Date Time Temp Pulse Resp B/P B/P Pulse O2 O2 Flow FiO2 Mean Ox Delivery Rate 12/07 1743 100.4 90 20 142/68 98 Room Air 12/07 1552 99.4 80 16 135/72 98 Room Air 12/07 1159 100.0 97 18 123/74 97 Room Air Intake & Output 12/07 1600 12/07 0800 12/07 0000 12/06 1600 12/06 0800 12/06 0000 Intake Total 1000 Output Total Balance 1000 Intake, IV 1000 Patient 224 lb Weight Weight Reported by Patient Measurement Method Physical Exam: Hercules grade 2 ulceration noted to the plantar forefoot right. No probing or undermining identified. There is moderate amount of drainage identified. Edema and cellulitis noted extending to the dorsal plantar midfoot. MRI findings demonstrate osteomyelitis of the third metatarsal head and base of proximal phalanx of the third digit, second metatarsal phalangeal joint sepsis and possible early osteomyelitis to the fourth metatarsal head. Assessment/Plan Assessment/Plan Cellulitis and right foot osteomyelitis. Patient nothing by mouth past midnight for open TMA tomorrow. Please hold antibiotics pending cultures. Consult Acknowledgment - Thank you for your consult request. Attending MD Review Statement Attending Statement Attending MD Statement: examined this patient
[2016-12-07 18:12] VITALS: BP 122/68
[2016-12-07 20:47] LABS: ABSOLUTE BASOPHIL COUNT 0.1 /CUMM (0.0-0.2); ABSOLUTE EOSINOPHIL COUNT 0 /CUMM (0.0-0.7); ABSOLUTE GRANULOCYTE CT 10.4 /CUMM (1.4-6.5); ABSOLUTE LYMPH COUNT 1.4 /CUMM (1.2-3.4); ABSOLUTE MONOCYTE COUNT 1.4 /CUMM (0.10-0.60); BASOPHIL % 0.4 % (0.0-2.0); EOSINOPHIL % 0.1 % (0-5); GRANULOCYTE % 78.4 % (42.2-75.2); MEAN CORPUSCULAR HGB 26.1 PG (27.0-31.0); MEAN CORPUSCULAR HGB CONC 32.7 G/DL (33.0-37.0); MEAN CORPUSCULAR VOLUME 79.9 FL (80.0-94.0); MEAN PLATELET VOLUME 8.7 FL (7.4-10.4); PLATELET COUNT 374 /CUMM (130-400); RBC DISTRIBUTION WIDTH 15.7 % (11.5-14.5); RED BLOOD CELL CT 4.13 /CUMM (4.70-6.10); WHITE BLOOD CELL COUNT 13.2 /CUMM (4.8-10.8)
[2016-12-07 21:50] VITALS: BP 114/62
[2016-12-08 06:29] VITALS: BP 110/60
--- NOTE | 2016-12-08 07:36 | PN- Housestaff ---
Subjective Follow-up For: RLE osteomyelitis Subjective: I saw and examined the patient today. States he is doing well. Denies fever, chills, SOB, chest pain, n/v/d, or leg/foot pain. Review of Systems Constitutional: Denies: see HPI. Objective Last 24 Hrs of Vital Signs/I&O Vital Signs Date Time Temp Pulse Resp B/P B/P Pulse O2 O2 Flow FiO2 Mean Ox Delivery Rate 12/08 1406 98.7 64 20 110/60 94 Room Air 12/08 0956 110/60 12/08 0629 99.6 71 20 110/60 95 Room Air 12/07 2150 99.8 74 19 114/62 96 Room Air Intake & Output 12/08 1600 12/08 0800 12/08 0000 Intake Total 600 375 480 Output Total 600 225 475 Balance 0 150 5 Intake, IV 600 375 Intake, Oral 0 480 Number 1 Bowel Movements Output, Urine 600 225 475 Patient 224 lb 224 lb Weight Weight Reported by Patient Measurement Method Physical Exam General Appearance: Alert, Oriented X3, Cooperative, No Acute Distress Cardiovascular: Regular Rate, Normal S1, Normal S2 Lungs: Clear to Auscultation Abdomen: Normal Bowel Sounds, Soft, No Tenderness Extremities: Plantar surface of right foot has a nonhealing ulcer with no active drainage. , pt has no sensation in his feet Vascular: Normal Pulses Assessment/Plan Assessment: Pt is a 71 y/o male with PMH signficant for DM insulin dependent (HbA1c: 8.1), repeated osteomyelitis of both feet, with recent skin graft in May of [address] Jones and Dr. Singh admitted for osteomyelitis. Pt is admitted to the general medicine floor for management of the followin. RLE Osteomyeltis- pt came in with suspected osteomyelitis of the R foot confirmed by MRI - Pt has been afebrile, normotensive with a normal HR and RR, saturating in mid90s on room air - Pt has leukocytosis w/o bandemia - ESR elevated at 35 - CRP elevated at 8.4 - Blood cultures sent, no growth to date - Will keep pt off antibiotics until biopsy of bone - Will keep pt NPO until TMA w/biopsy with Dr. Jones this afternoon - Will follow up biopsy results and initiate antibiotics if necessary - Will consult ID for recommendations 2. Euvolemic Hyponatremia- pt's BEP revealed a Na of 129 on admission. Pt's corrected Na for hyperglycemia: 131. Pt has been on a thiazide diuretic with low serum osmolality, high urine osmolality with high urine Na >40 indicating inappropriate retention of water as seen in SIADH or interference with NaCl cotransporter which occurs with thiazides. Other causes of euvolemic hyponatremia with elevated urine na and urine osm includes glucocorticoid deficiency and hypothyroidism. - repeat BEP: Na: 127 - baseline Na: 134 to 137 (from previous admission) - urine osmolality: 596 - serum osmolality: 256 - Urine Na: 121 - FeNa: 0.7 - will discontinue thiazide diuretic - pt currently on D5 1/2NS switched to D5 NS prior to biopsy - will recheck Na tonight, if pt's Na is not improving will fluid restrict 3. H/O DM - start on novology SS w/ accu-checks - on D5 NS - on levemir 25 units 4. H/O HTN - continue lisinopril 5mg daily - holding thiazide due to hyponatremia 5. H/O HLD - continue atorvastatin 10mg daily DVT PPx: Lovenox Diet: carbohydrate Code: Full Problem List: 1. Diabetes 2. Hypertension 3. Osteomyelitis of right foot 4. Hyponatremia Pain Ratin Pain Location: none Pain Goal: Remain pain free Pain Plan: none Tomorrow's Labs & Rationales: [employer] Consulting Request: Consulting Specialty: Podiatry Consulting Physician: Dr. Jones
--- NOTE | 2016-12-08 13:40 | Admission Certification ---
Admission Certification Certification Statement - As attending physician, I certify that at the time of - admission, based on clinical presentation, severity of - symptoms, need for further diagnostic testing and - therapeutic interventions, and risk of adverse outcomes - without in-hospital treatment, in my clinical assessment, - this patient requires an acute hospital stay for a minimum - of two nights or longer. I have also considered psychsocial - factors such as support system, advanced age, financial - issues, cognitive issues, and failed out-patient treatments, - past re-admission history, safety of patient, and lack of - compliance as applicable. Specific rationale supporting this admission is: Sepsis secondary to acute osteomyelitis
[2016-12-08 14:06] VITALS: BP 110/60
--- NOTE | 2016-12-08 14:40 | PN- Att Addend ---
Attending Addendum Attending Brief Note Patient seen and examined, Denies any pain in right foot. Patient is admitted with unstable like to send has a long-standing history of diabetes. Vital Signs Date Time Temp Pulse Resp B/P B/P Pulse O2 O2 Flow FiO2 Mean Ox Delivery Rate 12/08 1406 98.7 64 20 110/60 94 Room Air 12/08 0956 110/60 12/08 0629 99.6 71 20 110/60 95 Room Air 12/07 2150 99.8 74 19 114/62 96 Room Air 12/07 1812 99.8 83 19 122/68 96 Room Air 12/07 1743 100.4 90 20 142/68 98 Room Air 12/07 1552 99.4 80 16 135/72 98 Room Air on exam: aox3, nad. cv; s1,s2, rrr resp; clear abd; soft, nt, bs+ ext; no edema. skin; + wound on planter aspect of right food. Laboratory Tests 12/07 12/07 12/07 1904 1904 184 Chemistry Lactic Acid (0.7 - 2.1 mmol/L) 2.0 Hematology ESR W[place]gren (0 - 10 MM) 35 H Urines Urine Color (YEL,AMB,STR) YEL Urine Clarity (CLEAR) CLEAR Urine pH (5.0 - 8.0) 6.5 Ur Specific [place] (1.001 - 1.035) 1.015 Urine Protein (NEG,<30 MG/DL) TRACE H Urine Ketones (NEG) NEG Urine Nitrite (NEG) NEG Urine Bilirubin (NEG) NEG Urine Urobilinogen (0.1 - 1.0 EU/dl) 1.0 Ur Leukocyte Esterase (NEG) NEG Ur Microscopic SEDIMENT EXAMINED Urine RBC (0 - 5 /HPF) RARE Urine WBC (0 - 2 /HPF) RARE Ur Epithelial Cells (NONE,FEW) RARE Urine Bacteria (NEG/NONE) FEW H Urine Mucus (FEW,NONE) RARE Urine Hemoglobin (NEG) NEG Urine Osmolality (300 - 1000 MOSM/KG) 596 Ur Random Creatinine (mg/dL) 95.1 Ur Random Sodium (30 - 90 mmol/L) 121 H Ur Random Potassium (mmol/L) 63.5 Fraction Sodium Excret (<1% %) 0.7 Urine Glucose (N MG/DL) 250 H 12/08 1839 Chemistry Sodium (137 - 145 mmol/L) 127 L Potassium (3.5 - 5.1 mmol/L) 3.9 Chloride (98 - 107 mmol/L) 91 L Carbon Dioxide (22 - 30 mmol/L) 23 Anion Gap (5 - 16) 13 BUN (9 - 20 mg/dL) 11 Creatinine (0.7 - 1.2 mg/dL) 0.7 Estimated GFR (>60 ml/min) > 60 BUN/Creatinine Ratio (7 - 25 %) 15.7 Hematology CBC w Diff NO MAN DIFF REQ WBC (4.8 - 10.8 /CUMM) 13.2 H RBC (4.70 - 6.10 /CUMM) 4.13 L Hgb (14.0 - 18.0 G/DL) 10.8 L Hct (42 - 52 %) 33.0 L MCV (80.0 - 94.0 FL) 79.9 L MCH (27.0 - 31.0 PG) 26.1 L RDW (11.5 - 14.5 %) 15.7 H Plt Count (130 - 400 /CUMM) 374 MPV (7.4 - 10.4 FL) 8.7 Gran % (42.2 - 75.2 %) 78.4 H Lymphocytes % (20.5 - 51.1 %) 10.4 L Monocytes % (1.7 - 9.3 %) 10.7 H Eosinophils % (0 - 5 %) 0.1 Basophils % (0.0 - 2.0 %) 0.4 Absolute Granulocytes (1.4 - 6.5 /CUMM) 10.4 H Absolute Lymphocytes (1.2 - 3.4 /CUMM) 1.4 Absolute Monocytes (0.10 - 0.60 /CUMM) 1.4 H Absolute Eosinophils (0.0 - 0.7 /CUMM) 0 Absolute Basophils (0.0 - 0.2 /CUMM) 0.1 PUBS MCHC (33.0 - 37.0 G/DL) 32.7 L A/P; 71 y/o F with pmh sig for Diabetes (uncontrolled) peripheral neuopathy, h/o of osteomyelitis of R foot in 2015 requiring debridement, IV antibiotic therapy and skin grafting in May 2016, now admitting with right foot non healing wound osteomyelitis. Patient has not been started on any antibiotics. Patient scheduled for TMA today and bone biopsy with bone cultures with Dr. Lima. Patient claims that the he is not happy with his insulin regimen as an outpatient. Currently he was started on Levemir. Will consult endocrinology. After the biopsy, patient will need to be started on antibiotics. Please consult infectious disease. He does have hyponatremia and his IV fluids have been switched from D5 half at a D5 normal saline. Will monitor the sodium. Patient should be started on pharmacologic DVT prophylaxis with heparin subcutaneous after the procedure
--- NOTE | 2016-12-08 17:27 | Operative Report ---
Operative/Inv Procedure Report Surgery Date: 12/08/16 Name of Procedure: 1 open incision and drainage deep to the deep fascia with exposure of the extensor and flexor tendon and tendon sheath multiple sites right foot 2 open partial second third and fourth ray resection right foot 3 intraoperative administration of ankle block anesthesia 4 excisional debridement Pre-Operative Diagnosis: 1 plantar space abscess right foot 2 osteomyelitis right foot 3 diabetic peripheral neuropathy Post-Operative Diagnosis: Same Estimated Blood Loss: less than 50ml Surgeon/Buttoner: ANGEL BALTAZAR DPM Anesthesia: moderate sedation, block Operative/Procedure Note Note: After obtaining informed consent the patient was brought to the operating room and placed on the operating table in the supine position. The patient was then securely fastened to the operating table utilizing safety belt. After administration of IV sedation, 10 mL of 0.5% Marcaine plain was infiltrated about the patient's right ankle. The right foot and ankle within scrubbed prepped and draped in usual aseptic manner. The right foot where a fishmouth incision encompassing the distal second third and fourth rays was marked out with a skin marker. The skin was sized with a 15 blade and the dissection was then carried down to the metatarsophalangeal joints with the lesser digit where disarticulated and passed from the operative field. The dissection was then carried down deep to the deep fascia with exposure of the flexor tendon and tendon sheath multiple sites, both proximally and distally. All necrotic nonviable infected tissue sharply evacuated from the wound bed. Dorsally, the flap was developed over the distal second third and fourth rays. The wounds were then resected with a sagittal bone saw. The distal osseous segments were freed and passed from the operative field. Specimen was sent for both microbiologic and pathologic inspection. The open wound was then irrigated with 3 L of normal sterile saline infused with 50,000 units of bacitracin. Following this, the foot was redraped and the surgeon's top gloves were changed clean gloves. Any bleeding vessels identified were cauterized or ligated as encountered. Nipple was then packed with iodoform and 2-0 nylon retention sutures were placed. Foot was then dressed with 4 x 4's Kerlix and an [place] wrap. The patient was noted to tolerate both procedure and anesthesia well and the patient was transported from the operating room to recovery with vital signs stable.
[2016-12-08 18:15] VITALS: BP 112/64
[2016-12-08 22:05] VITALS: BP 108/58
[2016-12-09 07:07] VITALS: BP 132/68
[2016-12-09 08:29] LABS: ABSOLUTE BASOPHIL COUNT 0.1 /CUMM (0.0-0.2); ABSOLUTE EOSINOPHIL COUNT 0.3 /CUMM (0.0-0.7); ABSOLUTE GRANULOCYTE CT 6.5 /CUMM (1.4-6.5); ABSOLUTE LYMPH COUNT 1.8 /CUMM (1.2-3.4); ABSOLUTE MONOCYTE COUNT 1.2 /CUMM (0.10-0.60); BASOPHIL % 0.5 % (0.0-2.0); EOSINOPHIL % 2.8 % (0-5); GRANULOCYTE % 66.2 % (42.2-75.2); HEMATOCRIT 30.5 % (42-52); MEAN CORPUSCULAR HGB 26.5 PG (27.0-31.0); MEAN CORPUSCULAR HGB CONC 33.2 G/DL (33.0-37.0); MEAN CORPUSCULAR VOLUME 79.8 FL (80.0-94.0); MEAN PLATELET VOLUME 8.6 FL (7.4-10.4); PLATELET COUNT 354 /CUMM (130-400); RBC DISTRIBUTION WIDTH 15.9 % (11.5-14.5); RED BLOOD CELL CT 3.82 /CUMM (4.70-6.10); WHITE BLOOD CELL COUNT 9.8 /CUMM (4.8-10.8)
--- NOTE | 2016-12-09 08:34 | PN- Housestaff ---
YI ALVAREZ,SOPHIA 12/09/16 0833: Subjective Follow-up For: R foot osteomyelitis Subjective: I saw and examined the patient today. States he is doing well. Denies pain. Foot is covered with dressing. Pt denies any fever, chills, SOB, chest pain, abdominal pain, n/v/c/d. Review of Systems Constitutional: Denies: see HPI. Objective Last 24 Hrs of Vital Signs/I&O Vital Signs Date Time Temp Pulse Resp B/P B/P Pulse O2 O2 Flow FiO2 Mean Ox Delivery Rate 12/09 1014 66 128/60 12/09 0707 98.7 69 20 132/68 94 Room Air 12/08 2205 99.3 70 20 108/58 94 Intake & Output 12/09 1600 12/09 0800 12/09 0000 Intake Total 2500 600 600 Output Total 1200 370 Balance 1300 230 600 Intake, IV 700 600 600 Intake, Oral 1800 Number 1 Bowel Movements Output, Urine 1200 370 Physical Exam General Appearance: Alert, Oriented X3, Cooperative, No Acute Distress HEENT: Atraumatic, PERRLA, EOMI, Mucous Membr. moist/pink Cardiovascular: Regular Rate, Normal S1, Normal S2 Lungs: Clear to Auscultation Abdomen: Normal Bowel Sounds, Soft, No Tenderness Extremities: Normal Pulses, L foot covered in surgical dressing which is saturated with blood. Assessment/Plan Assessment: Pt is a 71 y/o male with PMH signficant for DM insulin dependent (HbA1c: 8.1), repeated osteomyelitis of both feet, with recent skin graft in May of [address] Jones and Dr. Singh admitted for osteomyelitis. Pt is admitted to the general medicine floor for management of the followin. RLE Osteomyeltis- pt came in with suspected osteomyelitis of the R foot confirmed by MRI - Pt has been afebrile, normotensive with a normal HR and RR, saturating in mid90s on room air - Pt's WBC trended down from 13.2 to 9.8 today - ESR elevated at 35 - CRP elevated at 8.4 - Blood cultures negative to date - Pt started on Unasyn by Dr. Jones, will continue - Bone biopsy: positive for beta hemolytic strep - Will consult ID for recommendations 2. Euvolemic Hyponatremia- pt's BEP revealed a Na of 129 on admission. Pt's corrected Na for hyperglycemia: 131. Pt has been on a thiazide diuretic with low serum osmolality, high urine osmolality with high urine Na >40 indicating inappropriate retention of water as seen in SIADH or interference with NaCl cotransporter which occurs with thiazides. Other causes of euvolemic hyponatremia with elevated urine na and urine osm includes glucocorticoid deficiency and hypothyroidism. - repeat BEP today: 133 today- appears to be normalizing off thiazide diuretic - baseline Na: 134 to 137 (from previous admission) - urine osmolality: 596 - serum osmolality: 256 - Urine Na: 121 - FeNa: 0.7 - will recheck Na 3. H/O DM - start on novology SS w/ accu-checks - on levemir 13 units 4. H/O HTN - continue lisinopril 5mg daily - holding thiazide due to hyponatremia 5. H/O HLD - continue atorvastatin 10mg daily DVT PPx: Lovenox Diet: carbohydrate Code: Full Problem List: 1. Osteomyelitis of right foot 2. Hyponatremia 3. Hypertension 4. Diabetes Pain Ratin Pain Location: L foot Pain Goal: Remain pain free Pain Plan: tylenol PRN Tomorrow's Labs & Rationales: CBC BEP Consulting Request: Consulting Specialty: Podiatry Consulting Physician: Dr. Robert TORREZ MD,[facility] 12/09/16 1157: Attending MD Review Statement Attending Statement Attending MD Statement: examined this patient, discuss w/resident/PA/SMALL ANIMAL CARETAKER, agreed w/resident/PA/SMALL ANIMAL CARETAKER, reviewed EMR data (avail), discussed with nursing, discussed with case mgmt, reviewed images, amended to note Attending Assessment/Plan: Patient seen and examined, denies complaints. He underwent surgery with Dr. Lima yesterday and had 1 open incision and drainage deep to the deep fascia with exposure of the extensor and flexor tendon and tendon sheath multiple sites right foot 2 open partial second third and fourth ray resection right foot 3 intraoperative administration of ankle block anesthesia 4 excisional debridement. The dressing on right foot is soaked with blood. Vital Signs Date Time Temp Pulse Resp B/P B/P Pulse O2 O2 Flow FiO2 Mean Ox Delivery Rate 12/09 1014 66 128/60 12/09 0707 98.7 69 20 132/68 94 Room Air 12/08 2205 99.3 70 20 108/58 94 12/08 1815 98.2 66 20 112/64 95 Room Air 12/08 1406 98.7 64 20 110/60 94 Room Air on exam; aox3, nad. cv; s1,s2, rrr resp; clear abd; soft,nt, bs+ ext; no edema. mallika wrap and dressing on right foot, soaked in blood. Laboratory Tests 12/09 12/08 0644 2126 Chemistry Sodium (137 - 145 mmol/L) 133 L 130 L Potassium (3.5 - 5.1 mmol/L) 4.1 3.9 Chloride (98 - 107 mmol/L) 99 96 L Carbon Dioxide (22 - 30 mmol/L) 24 24 Anion Gap (5 - 16) 11 11 BUN (9 - 20 mg/dL) 9 10 Creatinine (0.7 - 1.2 mg/dL) 0.6 L 0.7 Estimated GFR (>60 ml/min) > 60 > 60 BUN/Creatinine Ratio (7 - 25 %) 15.0 14.3 Hematology CBC w Diff NO MAN DIFF REQ WBC (4.8 - 10.8 /CUMM) 9.8 RBC (4.70 - 6.10 /CUMM) 3.82 L Hgb (14.0 - 18.0 G/DL) 10.1 L Hct (42 - 52 %) 30.5 L MCV (80.0 - 94.0 FL) 79.8 L MCH (27.0 - 31.0 PG) 26.5 L RDW (11.5 - 14.5 %) 15.9 H Plt Count (130 - 400 /CUMM) 354 MPV (7.4 - 10.4 FL) 8.6 Gran % (42.2 - 75.2 %) 66.2 Lymphocytes % (20.5 - 51.1 %) 18.2 L Monocytes % (1.7 - 9.3 %) 12.3 H Eosinophils % (0 - 5 %) 2.8 Basophils % (0.0 - 2.0 %) 0.5 Absolute Granulocytes (1.4 - 6.5 /CUMM) 6.5 Absolute Lymphocytes (1.2 - 3.4 /CUMM) 1.8 Absolute Monocytes (0.10 - 0.60 /CUMM) 1.2 H Absolute Eosinophils (0.0 - 0.7 /CUMM) 0.3 Absolute Basophils (0.0 - 0.2 /CUMM) 0.1 PUBS MCHC (33.0 - 37.0 G/DL) 33.2 A/P; 71 y/o F with pmh sig for Diabetes (uncontrolled) peripheral neuopathy, h/o of osteomyelitis of R foot in 2015 requiring debridement, IV antibiotic therapy and skin grafting in May 2016, now admitting with right foot non healing wound osteomyelitis. Also had hyponatremia/. Status post surgery Dr. Lima, postop day #1. Plan is to go to OR again next week and closure of the wound. I requested Dr. Lima today could look at the wound today. Patient was started on Unasyn by Dr. Lima. Will consult infectious disease for antibiotics recommendations. He will require a PICC line. Blood sugars are running in acceptable range on current regimen. Endocrine consult will be requested. Sodium improving. He stopped IV fluids and encourage by mouth intake. Patient should be started on heparin subcutaneous for DVT prophylaxis.
--- NOTE | 2016-12-09 15:44 | Cons- Infect Disease ---
General Information and HPI Consulting Request Date of Consult: 12/09/16 Requested By: CORONA TORREZ MD Reason for Consult: Osteomyelitis right foot Source of Information: patient, old records History of Present Illness: This is a 71-year-old man with diabetes, with a neuropathy, status post multiple surgeries on both feet, last hospitalized 7 months prior to admission with a right foot plantar space abscess secondary to MSSA, with an MRI at that time negative for osteomyelitis, with a skin graft and placement of a wound VAC 3 months later, with incomplete healing of the plantar ulcer, admitted on December 07 with erythema and edema of the right foot and several days of fevers and chills. On admission his temperature was 100. Laboratory data revealed a white blood cell count of 14,000, BUN/creatinine 13 and 0.7, with normal liver enzymes. Urinalysis rare RBC/rare WBCs. X-ray of the right foot revealed new metatarsal and phalangeal erosions of the third metatarsophalangeal joint. An MRI of the right foot revealed evidence of a septic third MTP joint with osteomyelitis of the metatarsal head and proximal phalanx, with a fluid collection extending along the plantar space medially with a probable septic arthritis of the second MTP joint and with marrow edema of the plantar aspect of the fourth metatarsal head. He was followed off antibiotics and on December 08 was taken to the OR for an I&D to the deep fascia and open partial second, third and fourth ray resections of the right foot. He was placed on Unasyn postoperatively. He had a temperature to 100.4 later on December 07 but has been afebrile since and his white blood cell count has normalized. At present he reports no pain which he attributes to a neuropathy. Allergies/Medications Allergies: Coded Allergies: No Known Allergies (05/05/16) Home Med List: Ascorbate Calcium (Vitamin C) 500 MG TABLET 1 TAB PO DAILY VITAMIN SUPPORT ( Reported) Aspirin (Aspirin*) 81 MG TAB.CHEW 1 TAB PO DAILY HEART HEALTH (Reported) Ferrous Sulfate 325 MG (65 MG IRON) TABLET 1 TAB PO DAILY SUPPLEMENT ( Reported) Humulin N (Noa) (Humulin N) 100 UNIT/ML VIAL 34 U SC QPM DIABETES (Reported ) Humulin N (Noa) (Humulin N) 100 UNIT/ML VIAL 25 U SC DAILY DIABETES ( Reported) Hydrochlorothiazide 25 MG TABLET 1 TAB PO DAILY WATER PILL (Reported) Insulin Aspart, Recombinant (Novolog Flexpen) (Unknown Strength) INSULN.PEN ( Unknown Dose) SC SEE SLIDING SCALE DIABETES (Reported) Lisinopril 5 MG TABLET 1 TAB PO DAILY HEART (Reported) Lovastatin 40 MG TABLET 1 TAB PO QPM CHOLESTEROL (Reported) with food Metformin HCl 500 MG TABLET 1 TAB PO DAILY DIABETES (Reported) Metformin HCl 500 MG TABLET 2 TAB PO QPM DIABETES (Reported) Multivit-Min/FA/Lycopen/Lutein (Centrum Silver Tablet) 0.4 MG-300 MCG-250 MCG TABLET 1 TAB PO DAILY SUPPLEMENT (Reported) [place]-3S/Dha/Epa/Fish Oil (Fish Oil 1,200 MG Softgel) 360-1,200MG CAPSULE 1 CAP PO DAILY SUPPLEMENT (Reported) Past History Travel History Traveled to [place] past 21 day No Medical History Neurological: NONE EENT: NONE Cardiovascular: hypertension, hyperlipidemia Respiratory: NONE Gastrointestinal: NONE Hepatic: NONE Renal: NONE Musculoskeletal: NONE Psychiatric: NONE Endocrine: diabetes Blood Disorders: NONE Cancer(s): NONE 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/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: 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 History of MRSA: No History of VRE: No History of CDIFF: No Isolation History: Standard Pneumonia Vaccine: 02/26/15 Surgical History Surgical History: status post left foot Barone bunionectomy, fifth metatarsal head excision and first metatarsal phalangeal joint debridement 6 years prior to admission status post right foot revision Barone arthroplasty and second toe hammertoe correction Barone 6 years prior to admission status 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 Home Services at Home: Nursing Smoking Status: Former Smoker Functional Ability ADLs Independent: dressing, eating, toileting, bathing. Ambulation: independent, cane Review of Systems Review of Systems All Other Systems: Reviewed and Negative Exam & Diagnostic Data Last 24 Hrs of Vital Signs/I&O Vital Signs Date Time Temp Pulse Resp B/P B/P Pulse O2 O2 Flow FiO2 Mean Ox Delivery Rate 12/09 1014 66 128/60 12/09 0707 98.7 69 20 132/68 94 Room Air 12/08 2205 99.3 70 20 108/58 94 12/08 1815 98.2 66 20 112/64 95 Room Air Intake & Output 12/09 1600 12/09 0800 12/09 0000 Intake Total 2500 600 600 Output Total 1200 370 Balance 1300 230 600 Intake, IV 700 600 600 Intake, Oral 1800 Number 1 Bowel Movements Output, Urine 1200 370 Physical Exam Other Physical Findings: Afebrile. He is awake and alert in no acute distress. Skin reveals no rash. HEENT negative. Neck is supple with no adenopathy. Lungs are clear. Heart regular rhythm with no murmur. Abdomen is soft, nontender with positive bowel sounds. Back no CVA tenderness. Extremities right foot dressing intact; left foot callus on the plantar aspect of the fourth and fifth toe with no surrounding inflammation; pulses 1+ on the left foot; no cyanosis, clubbing or edema of the left foot. Neuro neuropathy of the feet. . Last 24 Hours of Lab Results: Laboratory Tests 12/09 12/08 0644 2126 Chemistry Sodium (137 - 145 mmol/L) 133 L 130 L Potassium (3.5 - 5.1 mmol/L) 4.1 3.9 Chloride (98 - 107 mmol/L) 99 96 L Carbon Dioxide (22 - 30 mmol/L) 24 24 Anion Gap (5 - 16) 11 11 BUN (9 - 20 mg/dL) 9 10 Creatinine (0.7 - 1.2 mg/dL) 0.6 L 0.7 Estimated GFR (>60 ml/min) > 60 > 60 BUN/Creatinine Ratio (7 - 25 %) 15.0 14.3 Hematology CBC w Diff NO MAN DIFF REQ WBC (4.8 - 10.8 /CUMM) 9.8 RBC (4.70 - 6.10 /CUMM) 3.82 L Hgb (14.0 - 18.0 G/DL) 10.1 L Hct (42 - 52 %) 30.5 L MCV (80.0 - 94.0 FL) 79.8 L MCH (27.0 - 31.0 PG) 26.5 L RDW (11.5 - 14.5 %) 15.9 H Plt Count (130 - 400 /CUMM) 354 MPV (7.4 - 10.4 FL) 8.6 Gran % (42.2 - 75.2 %) 66.2 Lymphocytes % (20.5 - 51.1 %) 18.2 L Monocytes % (1.7 - 9.3 %) 12.3 H Eosinophils % (0 - 5 %) 2.8 Basophils % (0.0 - 2.0 %) 0.5 Absolute Granulocytes (1.4 - 6.5 /CUMM) 6.5 Absolute Lymphocytes (1.2 - 3.4 /CUMM) 1.8 Absolute Monocytes (0.10 - 0.60 /CUMM) 1.2 H Absolute Eosinophils (0.0 - 0.7 /CUMM) 0.3 Absolute Basophils (0.0 - 0.2 /CUMM) 0.1 PUBS MCHC (33.0 - 37.0 G/DL) 33.2 Last 24 Hours of [place] Results: Blood cultures 2 December 07 negative OR culture labeled right foot soft tissue December 08 positive for Group G strep OR culture labeled right foot bone December 08 pending Diagnostic Data Recent Imaging Findings: X-ray of the right foot December 07 revealed new metatarsal and phalangeal erosions of the third metatarsophalangeal joint. MRI of the right foot December 07 revealed evidence of a septic third MTP joint with osteomyelitis of the metatarsal head and proximal phalanx, with a fluid collection extending along the plantar space medially with a probable septic arthritis of the second MTP joint and with marrow edema of the plantar aspect of the fourth metatarsal head. Assessment/Plan Assessment/Plan Impression: This is a 71-year-old man with diabetes, status post multiple surgeries on both feet, most recently 4 1/2 months prior to admission when he underwent an I&D of a plantar space abscess of the right foot, with an MRI at that time negative for osteomyelitis, but with a nonhealing plantar ulcer since then, admitted on December 07 with the acute onset of erythema and edema of the right foot associated with fevers and chills, found on x-ray and MRI to have osteomyelitis of the third proximal phalanx and metatarsal head, with possible involvement of the second MTP joint and the fourth metatarsal head, now 1 day status post open partial second, third and fourth ray resections of the right foot for presumed osteomyelitis. He is scheduled for a return to the OR next week for possible wound closure, but he will likely require a 4 week course of IV antibiotics from his last debridement. His preliminary soft tissue culture from the OR is growing Group G strep and he can be continued on Unasyn pending final soft tissue and bone OR cultures. Suggestion: 1. Await return to the OR next week 2. Follow-up OR cultures 3. Will need to pursue placement of a PICC next week 4. Continue Unasyn pending above Consult Acknowledgment - Thank you for your consult request.
[2016-12-09 23:10] VITALS: BP 126/62
[2016-12-10 06:16] VITALS: BP 138/70
--- NOTE | 2016-12-10 07:22 | PN- Housestaff ---
See Addendum Subjective Follow-up For: Osteomyelitis Subjective: Saw pt at bedside. He was sitting comfortably in bed. He stated that he was eating very well and was sleeping well also. No acute overnight events and no complaints. Review of Systems Constitutional: Denies: chills, fever, weakness. EENTM: Denies: blurred vision. Cardiovascular: Denies: chest pain, palpitations. Respiratory: Denies: cough, wheezing. Gastrointestinal: Denies: abdominal pain, bloating, constipation. Genitourinary: Denies: pain, urgency. Musculoskeletal: Reports: joint pain. Objective Last 24 Hrs of Vital Signs/I&O Vital Signs Date Time Temp Pulse Resp B/P B/P Pulse O2 O2 Flow FiO2 Mean Ox Delivery Rate 12/10 0616 98.3 64 20 138/70 94 12/09 2310 98.3 68 22 126/62 94 Room Air 12/09 1014 66 128/60 Intake & Output 12/10 0800 12/10 0000 12/09 1600 Intake Total 204 794 1974 Output Total 5595 160 2587 Balance -875 -50 1300 Intake, IV 550 600 700 Intake, Oral 1800 Number 1 1 Bowel Movements Output, Urine 9065 113 4525 Physical Exam General Appearance: Alert, Oriented X3, Cooperative, No Acute Distress Skin: No Significant Lesion HEENT: Atraumatic, PERRLA, EOMI Neck: Supple Cardiovascular: Regular Rate, Normal S1, Normal S2 Lungs: Clear to Auscultation, Normal Air Movement Abdomen: Soft, No Tenderness Extremities: RLE in bandage. Did not open as it was clean nad intact. . no evidence of bleeding or drainage on dressing. Current Medications: Current Medications Sig/Ruth Start time Last Medication Dose Route Stop Time Status Admin Acetaminophen 650 MG .STK-MED ONE 12/09 1834 DC PO 12/09 1835 Acetaminophen 650 MG .STK-MED ONE 12/09 0844 DC PO 12/09 0845 Acetaminophen 650 MG Q6P PRN 12/07 1530 AC 12/10 PO 0258 Ampicillin Sodium/ 3,000 MG Q6 12/08 1800 AC 12/10 Sulbactam Sodium IV 0550 Sodium Chloride 100 ML Aspirin 81 MG DAILY 12/08 1000 AC 12/09 PO 1011 Atorvastatin Calcium 10 MG 1700 12/07 1700 AC 12/09 PO 1708 Dextrose/Sodium 1,000 ML Q13H 12/08 0930 DC 12/09 Chloride IV 1708 Ferrous Sulfate 325 MG DAILY 12/08 1000 AC 12/09 PO 1012 Ibuprofen 600 MG Q6P PRN 12/07 1530 AC PO Insulin Aspart 0 TIDAC/HS 12/09 0800 AC 12/09 SC 2057 Lisinopril 5 MG DAILY 12/08 1000 AC 12/09 PO 1014 Morphine Sulfate 1 MG Q6-PRN PRN 12/07 1530 AC IV Assessment/Plan Assessment: Pt is a 71 y/o male with PMH signficant for DM insulin dependent (HbA1c: 8.1), repeated osteomyelitis of both feet, with recent skin graft in May of [address] Jones and Dr. Singh admitted for osteomyelitis. Pt is admitted to the general medicine floor for management of the followin. RLE Osteomyeltis- pt came in with suspected osteomyelitis of the R foot confirmed by MRI - Pt has been afebrile, normotensive with a normal HR and RR, saturating in mid90s on room air - ESR elevated at 35 - Blood cultures negative to date - Pt started on Unasyn by Dr. Jones, will continue - Bone biopsy: positive for beta hemolytic strep - Thank you ID consult. Will f/u c cultures and con't Unasyn 2. Euvolemic Hyponatremia- pt's BEP revealed a Na of 129 on admission. Pt's corrected Na for hyperglycemia: 131. Pt has been on a thiazide diuretic with low serum osmolality, high urine osmolality with high urine Na >40 indicating inappropriate retention of water as seen in SIADH or interference with NaCl cotransporter which occurs with thiazides. Other causes of euvolemic hyponatremia with elevated urine na and urine osm includes glucocorticoid deficiency and hypothyroidism. - repeat BEP today 3. H/O DM - start on novology SS w/ accu-checks - on levemir 13 units 4. H/O HTN - continue lisinopril 5mg daily - holding thiazide due to hyponatremia 5. H/O HLD - continue atorvastatin 10mg daily DVT PPx: Lovenox Diet: carbohydrate Code: Full Problem List: 1. Hypertension 2. Hyponatremia 3. Osteomyelitis of right foot Pain Ratin Pain Location: none Pain Goal: Remain pain free Pain Plan: none Tomorrow's Labs & Rationales: cbc bep DVT/Prophylaxis: pharmacological Consulting Request: Consulting Specialty: Podiatry Consulting Physician: Dr. Jones
[2016-12-10 08:50] LABS: ABSOLUTE BASOPHIL COUNT 0.1 /CUMM (0.0-0.2); ABSOLUTE EOSINOPHIL COUNT 0.6 /CUMM (0.0-0.7); ABSOLUTE GRANULOCYTE CT 4.6 /CUMM (1.4-6.5); ABSOLUTE MONOCYTE COUNT 0.9 /CUMM (0.10-0.60); BASOPHIL % 0.6 % (0.0-2.0); EOSINOPHIL % 7.2 % (0-5); GRANULOCYTE % 56.7 % (42.2-75.2); HEMATOCRIT 31.9 % (42-52); MEAN CORPUSCULAR HGB 26.2 PG (27.0-31.0); MEAN CORPUSCULAR HGB CONC 32.7 G/DL (33.0-37.0); MEAN CORPUSCULAR VOLUME 80.2 FL (80.0-94.0); MEAN PLATELET VOLUME 8.5 FL (7.4-10.4); PLATELET COUNT 416 /CUMM (130-400); RBC DISTRIBUTION WIDTH 16.5 % (11.5-14.5); RED BLOOD CELL CT 3.98 /CUMM (4.70-6.10); WHITE BLOOD CELL COUNT 8.1 /CUMM (4.8-10.8)
[2016-12-10 14:36] VITALS: BP 126/68
--- NOTE | 2016-12-10 16:01 | PN- Infect Dx ---
Subjective Subjective: Afebrile without complaints Objective Last 24 Hrs of Vital Signs/I&O Vital Signs Date Time Temp Pulse Resp B/P B/P Pulse O2 O2 Flow FiO2 Mean Ox Delivery Rate 12/10 1436 99.4 64 20 126/68 95 Room Air 12/10 1102 63 150/72 12/10 0616 98.3 64 20 138/70 94 12/09 2310 98.3 68 22 126/62 94 Room Air Intake & Output 12/10 1600 12/10 0800 12/10 0000 Intake Total 550 600 Output Total 1425 650 Balance -875 -50 Intake, IV 550 600 Number 1 Bowel Movements Output, Urine 1425 650 Physical Exam Other Physical Findings: He appears comfortable in no acute distress Extremities right foot dressing intact Results Last 24 Hours of Lab Results: Laboratory Tests 12/10 0635 Chemistry Sodium (137 - 145 mmol/L) 138 Potassium (3.5 - 5.1 mmol/L) 4.6 Chloride (98 - 107 mmol/L) 102 Carbon Dioxide (22 - 30 mmol/L) 28 Anion Gap (5 - 16) 9 BUN (9 - 20 mg/dL) 8 L Creatinine (0.7 - 1.2 mg/dL) 0.6 L Estimated GFR (>60 ml/min) > 60 BUN/Creatinine Ratio (7 - 25 %) 13.3 Hematology CBC w Diff NO MAN DIFF REQ WBC (4.8 - 10.8 /CUMM) 8.1 RBC (4.70 - 6.10 /CUMM) 3.98 L Hgb (14.0 - 18.0 G/DL) 10.4 L Hct (42 - 52 %) 31.9 L MCV (80.0 - 94.0 FL) 80.2 MCH (27.0 - 31.0 PG) 26.2 L RDW (11.5 - 14.5 %) 16.5 H Plt Count (130 - 400 /CUMM) 416 H MPV (7.4 - 10.4 FL) 8.5 Gran % (42.2 - 75.2 %) 56.7 Lymphocytes % (20.5 - 51.1 %) 24.6 Monocytes % (1.7 - 9.3 %) 10.9 H Eosinophils % (0 - 5 %) 7.2 H Basophils % (0.0 - 2.0 %) 0.6 Absolute Granulocytes (1.4 - 6.5 /CUMM) 4.6 Absolute Lymphocytes (1.2 - 3.4 /CUMM) 2.0 Absolute Monocytes (0.10 - 0.60 /CUMM) 0.9 H Absolute Eosinophils (0.0 - 0.7 /CUMM) 0.6 Absolute Basophils (0.0 - 0.2 /CUMM) 0.1 PUBS MCHC (33.0 - 37.0 G/DL) 32.7 L Last 24 Hours of Vineet Results: OR culture December 08 labeled right foot soft tissue positive for Group G strep OR culture December 08 labeled right foot bone positive for Group G strep and a second gram-positive cocci Blood cultures 2 December 07 negative Assessment/Plan Impression: Improved with temperatures and white blood cell count normal on Unasyn for osteomyelitis of the right foot now 2 days status post open partial second, third and fourth ray resections, with the bone culture from the OR positive for Group G strep and a second gram-positive cocci. The significance of this second organism is unclear and can await identification. If it proves to be coag negative staph, this would likely represent contamination and should not require treatment. Suggestion: 1. Await return to the OR next week 2. Follow-up final OR cultures 3. Will need to pursue placement of a PICC next week 4. Would obtain a postop baseline ESR and x-ray of the right foot after his surgery next week 5. Continue Unasyn pending above Dr. Magana will be covering me until December 19
[2016-12-10 22:06] VITALS: BP 144/64
[2016-12-11 06:38] VITALS: BP 148/74
[2016-12-11 08:12] LABS: ABSOLUTE BASOPHIL COUNT 0.1 /CUMM (0.0-0.2); ABSOLUTE EOSINOPHIL COUNT 0.8 /CUMM (0.0-0.7); ABSOLUTE GRANULOCYTE CT 3.7 /CUMM (1.4-6.5); ABSOLUTE MONOCYTE COUNT 0.8 /CUMM (0.10-0.60); BASOPHIL % 1.1 % (0.0-2.0); EOSINOPHIL % 10.2 % (0-5); GRANULOCYTE % 50.3 % (42.2-75.2); HEMATOCRIT 30.9 % (42-52); MEAN CORPUSCULAR HGB 26.1 PG (27.0-31.0); MEAN CORPUSCULAR HGB CONC 32.6 G/DL (33.0-37.0); MEAN CORPUSCULAR VOLUME 79.9 FL (80.0-94.0); MEAN PLATELET VOLUME 8.3 FL (7.4-10.4); PLATELET COUNT 483 /CUMM (130-400); RBC DISTRIBUTION WIDTH 15.9 % (11.5-14.5); RED BLOOD CELL CT 3.86 /CUMM (4.70-6.10); WHITE BLOOD CELL COUNT 7.4 /CUMM (4.8-10.8)
--- NOTE | 2016-12-11 09:13 | PN- Housestaff ---
YI ALVAREZ,SOPHIA 12/11/16 0913: Subjective Follow-up For: R foot osteomyelits, DM Subjective: I saw and examined the patient. States he is doing well. Was happy to see Dr. Barclay today. States he is concerned about his sugars and what he can do to improve them. States he does his best to eat healthy. Today, denies chest pain, SOB, abdominal pain, R leg pain or swelling, fever, chills, n/v/c/d. Pt is a little nervous about going back to the OR on Monday and receiving his PICC tomorrow. Review of Systems Constitutional: Denies: see HPI. Objective Last 24 Hrs of Vital Signs/I&O Vital Signs Date Time Temp Pulse Resp B/P B/P Pulse O2 O2 Flow FiO2 Mean Ox Delivery Rate 12/11 0935 64 148/68 12/11 0638 98.5 62 20 148/74 95 12/10 2206 98.8 62 19 144/64 96 Room Air 12/10 1436 99.4 64 20 126/68 95 Room Air Intake & Output 12/11 1600 12/11 0800 12/11 0000 Intake Total 200 100 Output Total 900 1425 Balance -700 -1325 Intake, IV 200 100 Output, Urine 900 1425 Physical Exam General Appearance: Alert, Oriented X3, Cooperative, No Acute Distress HEENT: Atraumatic, PERRLA, Mucous Membr. moist/pink Cardiovascular: Regular Rate, Normal S1, Normal S2 Lungs: Clear to Auscultation Abdomen: Normal Bowel Sounds, Soft, No Tenderness Extremities: Normal Pulses, No Tenderness/Swelling, R foot bandaged in surgical dressing Assessment/Plan Assessment: Pt is a 71 y/o male with PMH signficant for DM insulin dependent (HbA1c: 8.1), repeated osteomyelitis of both feet, with recent skin graft in May of [address] Jones and Dr. Singh admitted for osteomyelitis. Pt is admitted to the general medicine floor for management of the followin. RLE Osteomyeltis- pt came in with suspected osteomyelitis of the R foot confirmed by MRI - Pt has been afebrile, normotensive with a normal HR and RR, saturating in mid90s on room air - ESR elevated at 35 - Blood cultures negative to date - Pt started on Unasyn by Dr. Jones, will continue - Bone biopsy: positive for beta hemolytic strep and gram positive cocci (will wait for ID and sensitivities to see if abx need to be changed) - Thank you ID consult. Will f/u c cultures and con't Unasyn - post op baseline ESR and x-ray of R foot after surgery next week 2. Euvolemic Hyponatremia- pt's BEP revealed a Na of 129 on admission. Pt's corrected Na for hyperglycemia: 131. Pt has been on a thiazide diuretic with low serum osmolality, high urine osmolality with high urine Na >40 indicating inappropriate retention of water as seen in SIADH or interference with NaCl cotransporter which occurs with thiazides. Other causes of euvolemic hyponatremia with elevated urine na and urine osm includes glucocorticoid deficiency and hypothyroidism. -Na is improvin today -TSH and T4 ordered -A.M cortisol 3. H/O DM - start on novology SS w/ accu-checks - Endocrinology consulted. Thank you for recommendations: per Dr. Barclay: -levemir 15 units BID - SS NovoLog before meals: -B to 150 --> 4 units insulin -B-200 --> 6 units insulin -B-250 --> 7 units insulin -B-300 --> 8 units insulin -B-350 --> 9 units insulin -B-400 --> 10 units insulin - SS Novolog at bedtime (seperate from above): -BG: <250 --> NO insulin -B-300 --> 2 units insulin -B-350 --> 3 units insulin -B-400 --> 4 units insulin 4. H/O HTN - continue lisinopril 5mg daily - holding thiazide due to hyponatremia - consider adding another antihypertensive if bp rises 5. H/O HLD - continue atorvastatin 10mg daily DVT PPx: Lovenox Diet: carbohydrate Code: Full Problem List: 1. Osteomyelitis of right foot 2. Hyponatremia 3. Diabetes 4. Hypertension Pain Ratin Pain Location: R foot Pain Goal: Remain pain free Pain Plan: tylenol PRN Tomorrow's Labs & Rationales: cbc bep Consulting Request: Consulting Specialty: Podiatry Consulting Physician: Dr. Robert TORREZ MD,[facility] 12/11/16 1554: Attending MD Review Statement Attending Statement Attending MD Statement: examined this patient, discuss w/resident/PA/MEDICAL OFFICE WORKER, agreed w/resident/PA/MEDICAL OFFICE WORKER, discussed with family, reviewed EMR data (avail), discussed with nursing, discussed with case mgmt, reviewed images, amended to note Attending Assessment/Plan: Patient seen and examined, overall feels well. Blood sugars is slightly better today but still not under optimal control. Patient denies any pain. vss. on exam; right foot wrapped in mallika wrap. Laboratory Tests 12/11 0640 Chemistry Sodium (137 - 145 mmol/L) 136 L Potassium (3.5 - 5.1 mmol/L) 4.3 Chloride (98 - 107 mmol/L) 101 Carbon Dioxide (22 - 30 mmol/L) 25 Anion Gap (5 - 16) 10 BUN (9 - 20 mg/dL) 8 L Creatinine (0.7 - 1.2 mg/dL) 0.7 Estimated GFR (>60 ml/min) > 60 BUN/Creatinine Ratio (7 - 25 %) 11.4 Hematology CBC w Diff NO MAN DIFF REQ WBC (4.8 - 10.8 /CUMM) 7.4 RBC (4.70 - 6.10 /CUMM) 3.86 L Hgb (14.0 - 18.0 G/DL) 10.1 L Hct (42 - 52 %) 30.9 L MCV (80.0 - 94.0 FL) 79.9 L MCH (27.0 - 31.0 PG) 26.1 L RDW (11.5 - 14.5 %) 15.9 H Plt Count (130 - 400 /CUMM) 483 H MPV (7.4 - 10.4 FL) 8.3 Gran % (42.2 - 75.2 %) 50.3 Lymphocytes % (20.5 - 51.1 %) 27.3 Monocytes % (1.7 - 9.3 %) 11.1 H Eosinophils % (0 - 5 %) 10.2 H Basophils % (0.0 - 2.0 %) 1.1 Absolute Granulocytes (1.4 - 6.5 /CUMM) 3.7 Absolute Lymphocytes (1.2 - 3.4 /CUMM) 2.0 Absolute Monocytes (0.10 - 0.60 /CUMM) 0.8 H Absolute Eosinophils (0.0 - 0.7 /CUMM) 0.8 Absolute Basophils (0.0 - 0.2 /CUMM) 0.1 PUBS MCHC (33.0 - 37.0 G/DL) 32.6 L A/P; 71 y/o F with pmh sig for Diabetes (uncontrolled) peripheral neuopathy, h/o of osteomyelitis of R foot in 2015 requiring debridement, IV antibiotic therapy and skin grafting in May 2016, now admitting with right foot non healing wound osteomyelitis status post debridement postop day #3 today. Has been started on IV Unasyn. Patient had hyponatremia which has resolved. Continue IV Unasyn and follow-up on cultures. Patient to receive a PICC line tomorrow. Appreciate endocrinology input. Please adjust insulin according to the recommendations. Patient to go back to OR with Dr. Lima on Monday. Dvt px; hep sq.
--- NOTE | 2016-12-11 11:32 | Cons- Endocrinology ---
General Information and HPI Consulting Request Date of Consult: 12/11/16 Requested By: medical team Reason for Consult: Uncontrolled diabetes Source of Information: patient, family, old records Exam Limitations: no limitations History of Present Illness: This 71-year-old male is a long-standing history of diabetes type 2. He presents with cellulitis, abscess, and osteomyelitis involving right foot. At home the patient was taking Humulin NPH insulin 25 units in the morning and 34 units at bedtime. He did have some NovoLog at home but was using very little of that before meals because he states his sugars were good. The patient has known complications from his diabetes including diabetic neuropathy and retinopathy. He is not aware of any diabetic kidney disease. The patient was taken to the OR by Dr. Lima and has undergone toe amputations and debridement of his right foot. He is being followed by Walter Che MD of the ID service and is on Unasyn. Overall he feels improved. In the hospital the patient sugars have been running quite high. He is on Levemir 13 units twice a day as well as NovoLog sliding scale starting with the sugar of 151-200. Yesterday his sugars were in the 280 to 3:30 range. This morning his fasting sugar is down to 199. The patient also presented with hyponatremia. His serum sodium is now improved and only mildly low. Allergies/Medications Allergies: Coded Allergies: No Known Allergies (05/05/16) Home Med List: Ascorbate Calcium (Vitamin C) 500 MG TABLET 1 TAB PO DAILY VITAMIN SUPPORT ( Reported) Aspirin (Aspirin*) 81 MG TAB.CHEW 1 TAB PO DAILY HEART HEALTH (Reported) Ferrous Sulfate 325 MG (65 MG IRON) TABLET 1 TAB PO DAILY SUPPLEMENT ( Reported) Humulin N (Noa) (Humulin N) 100 UNIT/ML VIAL 34 U SC QPM DIABETES (Reported ) Humulin N (Noa) (Humulin N) 100 UNIT/ML VIAL 25 U SC DAILY DIABETES ( Reported) Hydrochlorothiazide 25 MG TABLET 1 TAB PO DAILY WATER PILL (Reported) Insulin Aspart, Recombinant (Novolog Flexpen) (Unknown Strength) INSULN.PEN ( Unknown Dose) SC SEE SLIDING SCALE DIABETES (Reported) Lisinopril 5 MG TABLET 1 TAB PO DAILY HEART (Reported) Lovastatin 40 MG TABLET 1 TAB PO QPM CHOLESTEROL (Reported) with food Metformin HCl 500 MG TABLET 1 TAB PO DAILY DIABETES (Reported) Metformin HCl 500 MG TABLET 2 TAB PO QPM DIABETES (Reported) Multivit-Min/FA/Lycopen/Lutein (Centrum Silver Tablet) 0.4 MG-300 MCG-250 MCG TABLET 1 TAB PO DAILY SUPPLEMENT (Reported) Price-3S/Dha/Epa/Fish Oil (Fish Oil 1,200 MG Softgel) 360-1,200MG CAPSULE 1 CAP PO DAILY SUPPLEMENT (Reported) Review of Systems Review of Systems Constitutional: Denies: chills, fever. Cardiovascular: Denies: chest pain. Respiratory: Denies: short of breath. GI: Denies: nausea, vomiting. Skin: Reports: see HPI. Neurological/Psychological: Denies: anxiety, depressed. Hematologic/Endocrine: Denies: polyuria, polydipsia. Past History Travel History Traveled to [place] past 21 day No Medical History Neurological: NONE EENT: NONE Cardiovascular: hypertension, hyperlipidemia Respiratory: NONE Gastrointestinal: NONE Hepatic: NONE Renal: NONE Musculoskeletal: NONE Psychiatric: NONE Endocrine: diabetes Blood Disorders: NONE Cancer(s): NONE CABINET MAKER/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: NONE Surgical History Surgical History: status post left foot Barone bunionectomy, fifth metatarsal head excision and first metatarsal phalangeal joint debridement 6 years prior to admission status post right foot revision Barone arthroplasty and second toe hammertoe correction Barone 6 years prior to admission status post right sesamoidectomy 2 yrs [employer]ALENT AC[employer]ISITION [employer]OCIATE and hammertoe repair of the third through fifth toes 5 years prior to admission Family History Relations & Conditions If Any: Relation not specified for: *No pertinent family history Psychosocial History Where Do You Live? Home Services at Home: Nursing Smoking Status: Former Smoker Functional Ability ADLs Independent: dressing, eating, toileting, bathing. Ambulation: independent, cane Exam & Diagnostic Data Last 24 Hrs of Vital Signs/I&O Vital Signs Date Time Temp Pulse Resp B/P B/P Pulse O2 O2 Flow FiO2 Mean Ox Delivery Rate 12/11 0935 64 148/68 12/11 0638 98.5 62 20 148/74 95 12/10 2206 98.8 62 19 144/64 96 Room Air 12/10 1436 99.4 64 20 126/68 95 Room Air Intake & Output 12/11 1600 12/11 0800 07 0000 Intake Total 200 100 Output Total 900 1425 Balance -700 -1325 Intake, IV 200 100 Output, Urine 900 1425 Vital Signs Date Time Temp Pulse Resp B/P B/P Pulse O2 O2 Flow FiO2 Mean Ox Delivery Rate 12/11 0935 64 148/68 12/11 0638 98.5 62 20 148/74 95 12/10 2206 98.8 62 19 144/64 96 Room Air 12/10 1436 99.4 64 20 126/68 95 Room Air Intake & Output 12/11 1600 12/11 0800 12/11 0000 Intake Total 200 100 Output Total 900 1425 Balance -700 -1325 Intake, IV 200 100 Output, Urine 900 1425 Physical Exam General Appearance: well developed/nourished, no apparent distress, alert, awake , comfortable Head: normal appearance Eyes: Bilateral: normal appearance. Neck: normal inspection Respiratory: normal breath sounds Cardiovascular: regular rate/rhythm Gastrointestinal: normal bowel sounds, soft Extremities: right foot bandaged Labs/Vineet Results: Laboratory Tests 12/11 0640 Chemistry Sodium (137 - 145 mmol/L) 136 L Potassium (3.5 - 5.1 mmol/L) 4.3 Chloride (98 - 107 mmol/L) 101 Carbon Dioxide (22 - 30 mmol/L) 25 Anion Gap (5 - 16) 10 BUN (9 - 20 mg/dL) 8 L Creatinine (0.7 - 1.2 mg/dL) 0.7 Estimated GFR (>60 ml/min) > 60 BUN/Creatinine Ratio (7 - 25 %) 11.4 Hematology CBC w Diff NO MAN DIFF REQ WBC (4.8 - 10.8 /CUMM) 7.4 RBC (4.70 - 6.10 /CUMM) 3.86 L Hgb (14.0 - 18.0 G/DL) 10.1 L Hct (42 - 52 %) 30.9 L MCV (80.0 - 94.0 FL) 79.9 L MCH (27.0 - 31.0 PG) 26.1 L RDW (11.5 - 14.5 %) 15.9 H Plt Count (130 - 400 /CUMM) 483 H MPV (7.4 - 10.4 FL) 8.3 Gran % (42.2 - 75.2 %) 50.3 Lymphocytes % (20.5 - 51.1 %) 27.3 Monocytes % (1.7 - 9.3 %) 11.1 H Eosinophils % (0 - 5 %) 10.2 H Basophils % (0.0 - 2.0 %) 1.1 Absolute Granulocytes (1.4 - 6.5 /CUMM) 3.7 Absolute Lymphocytes (1.2 - 3.4 /CUMM) 2.0 Absolute Monocytes (0.10 - 0.60 /CUMM) 0.8 H Absolute Eosinophils (0.0 - 0.7 /CUMM) 0.8 Absolute Basophils (0.0 - 0.2 /CUMM) 0.1 PUBS MCHC (33.0 - 37.0 G/DL) 32.6 L Laboratory Tests 12/11 0640 Chemistry Sodium (137 - 145 mmol/L) 136 L Potassium (3.5 - 5.1 mmol/L) 4.3 Chloride (98 - 107 mmol/L) 101 Carbon Dioxide (22 - 30 mmol/L) 25 Anion Gap (5 - 16) 10 BUN (9 - 20 mg/dL) 8 L Creatinine (0.7 - 1.2 mg/dL) 0.7 Estimated GFR (>60 ml/min) > 60 BUN/Creatinine Ratio (7 - 25 %) 11.4 Hematology CBC w Diff NO MAN DIFF REQ WBC (4.8 - 10.8 /CUMM) 7.4 RBC (4.70 - 6.10 /CUMM) 3.86 L Hgb (14.0 - 18.0 G/DL) 10.1 L Hct (42 - 52 %) 30.9 L MCV (80.0 - 94.0 FL) 79.9 L MCH (27.0 - 31.0 PG) 26.1 L RDW (11.5 - 14.5 %) 15.9 H Plt Count (130 - 400 /CUMM) 483 H MPV (7.4 - 10.4 FL) 8.3 Gran % (42.2 - 75.2 %) 50.3 Lymphocytes % (20.5 - 51.1 %) 27.3 Monocytes % (1.7 - 9.3 %) 11.1 H Eosinophils % (0 - 5 %) 10.2 H Basophils % (0.0 - 2.0 %) 1.1 Absolute Granulocytes (1.4 - 6.5 /CUMM) 3.7 Absolute Lymphocytes (1.2 - 3.4 /CUMM) 2.0 Absolute Monocytes (0.10 - 0.60 /CUMM) 0.8 H Absolute Eosinophils (0.0 - 0.7 /CUMM) 0.8 Absolute Basophils (0.0 - 0.2 /CUMM) 0.1 PUBS MCHC (33.0 - 37.0 G/DL) 32.6 L Assessment/Plan Assessment/Plan This 71-year-old male has a known history of diabetes mellitus type 2 with severe complications including diabetic retinopathy status post laser therapy and diabetic neuropathy. He presents with a severe infection with cellulitis abscess and osteomyelitis of his right foot. He is now status post 2 episodes of surgery with removal of all 5 toes and debridement of the foot. The patient sugars have been running high in the hospital though he his sugar this morning is 199. At home he was used to taking a lot of NPH and very little fast acting insulin before meals. We would like to have him follow a basal bolus regimen even when he goes home. In the hospital I would suggest that we can increase his Levemir to 15 units twice a day. Sliding-scale NovoLog before meals should be 80-150 give 4 units NovoLog, 151-200 give 6 units NovoLog, 201-250 give 7 units NovoLog, 251-300 give 8 units NovoLog, 301-350 give 9 units NovoLog, 351-400 give 10 units NovoLog. A separate sliding-scale NovoLog at bedtime should be written. Sliding-scale NovoLog at bedtime should be less than 250 give no insulin, 251-300 give 2 units NovoLog, 301-350 give 3 units NovoLog, 351-400 give 4 units NovoLog. The patient's hyponatremia should be investigated further. He needs a free T4 and TSH done which can be added to previous blood work. An a.m. cortisol should be done before breakfast tomorrow morning. Consult Acknowledgment - Thank you for your consult request.
[2016-12-11 15:26] VITALS: BP 138/70
--- NOTE | 2016-12-11 16:04 | PN- Infect Dx ---
Subjective Subjective: Denies chest pain, SOB, abdominal pain, R leg pain or swelling, fever, chills, n /v/c/d. Feels a little nervous about going back to the OR on Monday and the PICC placement tomorrow. Review of Systems Comments: 12 points reviewed as noted, otherwise negative. Objective Last 24 Hrs of Vital Signs/I&O Vital Signs Date Time Temp Pulse Resp B/P B/P Pulse O2 O2 Flow FiO2 Mean Ox Delivery Rate 12/11 1526 99.2 63 20 138/70 97 Room Air 12/11 0935 64 148/68 12/11 0638 98.5 62 20 148/74 95 / 2206 98.8 62 19 144/64 96 Room Air Intake & Output 12/11 1600 12/11 0800 12/11 0000 Intake Total 200 100 Output Total 900 1425 Balance -700 -1325 Intake, IV 200 100 Output, Urine 900 1425 Physical Exam Other Physical Findings: General Appearance: Alert, Oriented X3, Cooperative, No Acute Distress HEENT: Atraumatic, PERRLA, Mucous Membr. moist/pink Cardiovascular: Regular Rate, Normal S1, Normal S2 Lungs: Clear to Auscultation Abdomen: Normal Bowel Sounds, Soft, No Tenderness Extremities: Normal Pulses, No Tenderness/Swelling, R foot dressing in place Results Last 24 Hours of Lab Results: Laboratory Tests 12/11 0640 Chemistry Sodium (137 - 145 mmol/L) 136 L Potassium (3.5 - 5.1 mmol/L) 4.3 Chloride (98 - 107 mmol/L) 101 Carbon Dioxide (22 - 30 mmol/L) 25 Anion Gap (5 - 16) 10 BUN (9 - 20 mg/dL) 8 L Creatinine (0.7 - 1.2 mg/dL) 0.7 Estimated GFR (>60 ml/min) > 60 BUN/Creatinine Ratio (7 - 25 %) 11.4 Hematology CBC w Diff NO MAN DIFF REQ WBC (4.8 - 10.8 /CUMM) 7.4 RBC (4.70 - 6.10 /CUMM) 3.86 L Hgb (14.0 - 18.0 G/DL) 10.1 L Hct (42 - 52 %) 30.9 L MCV (80.0 - 94.0 FL) 79.9 L MCH (27.0 - 31.0 PG) 26.1 L RDW (11.5 - 14.5 %) 15.9 H Plt Count (130 - 400 /CUMM) 483 H MPV (7.4 - 10.4 FL) 8.3 Gran % (42.2 - 75.2 %) 50.3 Lymphocytes % (20.5 - 51.1 %) 27.3 Monocytes % (1.7 - 9.3 %) 11.1 H Eosinophils % (0 - 5 %) 10.2 H Basophils % (0.0 - 2.0 %) 1.1 Absolute Granulocytes (1.4 - 6.5 /CUMM) 3.7 Absolute Lymphocytes (1.2 - 3.4 /CUMM) 2.0 Absolute Monocytes (0.10 - 0.60 /CUMM) 0.8 H Absolute Eosinophils (0.0 - 0.7 /CUMM) 0.8 Absolute Basophils (0.0 - 0.2 /CUMM) 0.1 PUBS MCHC (33.0 - 37.0 G/DL) 32.6 L Last 24 Hours of Vineet Results: SPEC #: [id number] TERI: 12/08/16 STATUS: RES RECD: 12/08/[address]: ANGEL BALTAZAR DPM SOURCE: [facility] ENTR: 12/08/16-[address] [facility] [address]: NAN JOSEPH MD SPDESC: AMOS COLE MD ORDERED: XTRMOR COMMENT: ADDITIONAL INFORMATION: BONE Procedure Result > GRAM STAIN Final 12/09/16-1148 WHITE BLOOD CELLS FEW GRAM POSITIVE COCCI MODERATE IN CHAINS > EXTREMITIES OR SPECIMEN Preliminary 12/11/16-1119 AFTER OVERNIGHT INCUBATION IN THIO BROTH: 1. BETA STREP GROUP G Penicillin and Ampicillin are drugs of choice for beta-hemolytic streptococcal infections. Susceptibility testing of penicillins and other beta-lactams are not routinely performed because non-susceptible isolates have only rarely been reported. Note: If patient is allergic to Penicillin, the laboratory can perform Clindamycin testing upon request. Please call within 5 days of final report. 2. DIPHTHEROIDS 3. 2ND POSSIBLE GRAM POSITIVE COCCI Identification and sensitivities to follow Called to/Readback by ERMA by GUSTAVO 12/10/16 1053 Recent Imaging Studies: MRI R foot IMPRESSION: Progression since 05/02/2016, now with evidence of a septic 3rd MTP joint with osteomyelitis of the metatarsal head and proximal phalanx. The fluid collection extends along the plantar aspect medially, with a probable septic arthritis of the 2nd MTP joint although no convincing evidence of an associated osteomyelitis of this joint. There is marrow edema at the plantar aspect of the 4th metatarsal head which may be reactive although early osteomyelitis cannot be excluded. DICTATED BY: KIYA MOTA MD DATE/TIME DICTATED:12/07/161617 Assessment/Plan Impression: 71-year-old man with diabetes, with a neuropathy, status post multiple surgeries on both feet, last hospitalized 7 months for right foot plantar space MSSA abscess and incomplete healing of the plantar ulcer, admitted on December 07. Septic 3rd MTP joint with osteomyelitis of the metatarsal head and proximal phalanx and probable septicarthritis of the 2nd MTP joint Fever resolved while treated w/ iv Unasyn for osteomyelitis of the right foot; POD #3 status post open partial second, third and fourth ray resections, with the bone culture from the OR positive for Group G strep and a second gram- positive cocci. The significance of this second organism is unclear and can await identification; possible contaminant. Suggestion: 1. Await return to the OR next week 2. Follow-up final OR cultures 3. PICC line placement Monday. 4. Would obtain a postop baseline ESR and x-ray of the right foot after his surgery next week 5. Continue Unasyn 3gm iv q 6 h D #4 pending above.
[2016-12-11 22:25] VITALS: BP 130/60
[2016-12-12 06:46] VITALS: BP 160/76
--- NOTE | 2016-12-12 08:22 | PN- Diabetes ---
Assessment/Plan Assessment: Agents blood sugars remained high yesterday that we started his insulin regimen later in the day. He is currently on Levemir 15 units twice a day as well as sliding scale NovoLog before meals with a separate sliding-scale at bedtime. Fingerstick blood sugars yesterday were 199 in the morning, 251 and before lunch , 254 before dinner, and 329 at bedtime. This morning his fasting sugar is 209. Plan: Suggest continue the present insulin regimen during the day today. If the patient is nothing by mouth after midnight tonight for foot surgery in the morning, we should change his regimen by giving 8 units Levemir tonight only. We should begin an IV with D5 half-normal saline at 100 mL per hour. We should change the NovoLog coverage to every 4 hours while nothing by mouth. NovoLog coverage while nothing by mouth every 4 hours should be less than 150 give no insulin, and 151-200 give 3 units NovoLog, 201-250 give 5 units NovoLog, 251-300 give 6 units NovoLog, 301-350 give 7 units NovoLog, 351-400 give 8 units NovoLog. When the patient resumes his diet we should place him back on his insulin regimen with NovoLog before meals with a separate sliding-scale at bedtime and his present dose of Levemir. Subjective Subjective: Feels okay Review of Systems Constitutional: Denies: chills, fever. Cardiovascular: Denies: chest pain. Respiratory: Denies: short of breath. Gastrointestinal: Denies: nausea, vomiting. Hematologic/Endocrine: Denies: polyuria, polydipsia. Objective Last 24 Hrs of Vital Signs/I&O Vital Signs Date Time Temp Pulse Resp B/P B/P Pulse O2 O2 Flow FiO2 Mean Ox Delivery Rate 12/13 0621 98.2 63 20 142/76 96 Room Air 12/12 2229 98.6 60 19 148/74 96 12/12 1502 97.9 65 20 144/70 96 Room Air Intake & Output 12/13 0800 12/13 0000 12/12 1600 Intake Total 626 635 1569 Output Total 700 1005 1600 Balance 100 -225 -270 Intake, IV 800 300 130 Intake, Oral 480 1200 Output, Urine 700 1005 1600 Physical Exam General Appearance: alert, awake, comfortable Head: normal appearance Neck: normal inspection Respiratory: normal breath sounds Cardiovascular: regular rate/rhythm Abdomen: normal bowel sounds Extremities: normal inspection Current Medications: Current Medications Sig/Ruth Start time Last Medication Dose Route Stop Time Status Admin Acetaminophen 650 MG Q6P PRN 12/07 1530 AC 12/10 PO 0258 Ampicillin Sodium/ 3,000 MG Q6 12/08 1800 AC 12/13 Sulbactam Sodium IV 0506 Sodium Chloride 100 ML Aspirin 81 MG DAILY 12/08 1000 AC 12/12 PO 1004 Atorvastatin Calcium 10 MG 1700 12/07 1700 AC 12/12 PO 1727 Dextrose/Sodium 1,000 ML Q10H 12/12 2200 AC 12/12 Chloride IV 2220 Ferrous Sulfate 325 MG DAILY 12/08 1000 AC 12/12 PO 1004 Heparin Sodium 5,000 UNIT Q8 12/10 1417 AC 12/12 (Porcine) SC 2227 Ibuprofen 600 MG Q6P PRN 12/07 1530 AC PO Insulin Aspart 0 AT BEDTIME 12/12 2200 CAN SC Insulin Aspart 0 Q4 12/12 1800 AC 12/13 SC 0208 Insulin Aspart 0 TIDAC 12/12 0800 DC 12/12 SC 1148 Insulin Detemir 8 UNITS BID 12/12 2200 DC 12/12 SC 12/12 2201 2225 Insulin Detemir 15 UNITS BID 12/12 1000 DC 12/12 SC 1004 Lisinopril 5 MG DAILY 12/08 1000 AC 12/12 PO 1004 Morphine Sulfate 1 MG Q6-PRN PRN 12/07 1530 AC IV Patient Medication 1 ED .STK-MED ONE 12/12 1409 DC Teaching ED 12/12 1410
[2016-12-12 09:36] LABS: ABSOLUTE BASOPHIL COUNT 0.1 /CUMM (0.0-0.2); ABSOLUTE EOSINOPHIL COUNT 0.8 /CUMM (0.0-0.7); ABSOLUTE GRANULOCYTE CT 4.2 /CUMM (1.4-6.5); ABSOLUTE MONOCYTE COUNT 0.8 /CUMM (0.10-0.60); BASOPHIL % 1.2 % (0.0-2.0); EOSINOPHIL % 10.5 % (0-5); GRANULOCYTE % 53.4 % (42.2-75.2); HEMATOCRIT 32.8 % (42-52); MEAN CORPUSCULAR HGB 26.1 PG (27.0-31.0); MEAN CORPUSCULAR HGB CONC 32.3 G/DL (33.0-37.0); MEAN PLATELET VOLUME 8.2 FL (7.4-10.4); PLATELET COUNT 546 /CUMM (130-400); RBC DISTRIBUTION WIDTH 15.9 % (11.5-14.5); RED BLOOD CELL CT 4.05 /CUMM (4.70-6.10); WHITE BLOOD CELL COUNT 7.8 /CUMM (4.8-10.8)
--- NOTE | 2016-12-12 13:55 | PN- Att Addend ---
Attending Addendum Attending Brief Note Patient seen and examined. Plan of care discussed with the medical team and the patient. Available lab work and radiology test reports were reviewed. Patient appears awake alert and without any distress. Denies any recent fever or chills however he was noted to have a temperature 103.5 last evening. Patient does not recall this fever episode. He denies any nausea vomiting or diarrhea or any new skin rashes. Denies any recent cough or sputum production or difficulty breathing Vital Signs Date Time Temp Pulse Resp B/P B/P Pulse O2 O2 Flow FiO2 Mean Ox Delivery Rate 12/12 0646 98.7 66 20 160/76 95 Room Air 12/11 2225 98.7 61 19 130/60 95 Room Air 12/11 1744 103.5 12/11 1526 99.2 63 20 138/70 97 Room Air Intake & Output 12/12 1600 12/12 0800 12/12 0000 Intake Total 140 10 Output Total 1150 Balance 140 -1140 Intake, IV 140 10 Output, Urine 1150 Exam: General: Patient awake alert oriented without any distress CVS: S1 plus S2 without any murmur or gallops Chest: Few scattered crepitation without any wheeze. There is no respiratory distress. Abdomen: Soft nontender, bowel sound present, no guarding or rebound LEATHER SCRAPER: Awake alert oriented without any focal neuro deficit and follows command appropriately Extremities: No edema; no clubbing or cyanosis noted Laboratory Tests 12/12 0750 Chemistry Sodium (137 - 145 mmol/L) 138 Potassium (3.5 - 5.1 mmol/L) 4.7 Chloride (98 - 107 mmol/L) 100 Carbon Dioxide (22 - 30 mmol/L) 27 Anion Gap (5 - 16) 10 BUN (9 - 20 mg/dL) 9 Creatinine (0.7 - 1.2 mg/dL) 0.7 Estimated GFR (>60 ml/min) > 60 BUN/Creatinine Ratio (7 - 25 %) 12.9 TSH (0.270 - 4.200 uIU/mL) 2.520 Free T4 (0.78 - 2.44 ng/dL) 1.69 Cortisol AM Sample (4.46 - 22.7 ug/dL) 13.0 Hematology CBC w Diff NO MAN DIFF REQ WBC (4.8 - 10.8 /CUMM) 7.8 RBC (4.70 - 6.10 /CUMM) 4.05 L Hgb (14.0 - 18.0 G/DL) 10.6 L Hct (42 - 52 %) 32.8 L MCV (80.0 - 94.0 FL) 81.0 MCH (27.0 - 31.0 PG) 26.1 L RDW (11.5 - 14.5 %) 15.9 H Plt Count (130 - 400 /CUMM) 546 H MPV (7.4 - 10.4 FL) 8.2 Gran % (42.2 - 75.2 %) 53.4 Lymphocytes % (20.5 - 51.1 %) 25.3 Monocytes % (1.7 - 9.3 %) 9.6 H Eosinophils % (0 - 5 %) 10.5 H Basophils % (0.0 - 2.0 %) 1.2 Absolute Granulocytes (1.4 - 6.5 /CUMM) 4.2 Absolute Lymphocytes (1.2 - 3.4 /CUMM) 2.0 Absolute Monocytes (0.10 - 0.60 /CUMM) 0.8 H Absolute Eosinophils (0.0 - 0.7 /CUMM) 0.8 Absolute Basophils (0.0 - 0.2 /CUMM) 0.1 PUBS MCHC (33.0 - 37.0 G/DL) 32.3 L Culture reports were reviewed Assessment * Right foot osteomyelitis most likely due to group B strep * Hyponatremia * History of diabetes * History of hyperlipidemia * History of hypertension * Recurrent fever while on antibiotics Plan * Plan to go back to operation theater for further debridement * Monitor closely for fever recurrence; if patient has fever again we will islas culture and obtain a chest x-ray * Patient to be nothing by mouth post midnight. Will start IV fluids with D5 half-normal saline 100 mL/h. Patient is to receive 8 units of Levemir tonight only and skip the dose of Levemir tomorrow morning. Continue sliding scale as recommended by endocrinology.
[2016-12-12 15:02] VITALS: BP 144/70
--- NOTE | 2016-12-12 15:45 | PN- Infect Dx ---
Subjective Subjective: T max 103.5 F. No new c/o. Patient believes high temp was recorded in error. Currently afebrile feeling well. No Bm today. No urinary sx or abd pain. No cough. Review of Systems Comments: 12 points reviewed as noted; otherwise negative. Objective Last 24 Hrs of Vital Signs/I&O Vital Signs Date Time Temp Pulse Resp B/P B/P Pulse O2 O2 Flow FiO2 Mean Ox Delivery Rate 12/12 1502 97.9 65 20 144/70 96 Room Air 12/12 0646 98.7 66 20 160/76 95 Room Air 12/11 2225 98.7 61 19 130/60 95 Room Air 12/11 1744 103.5 Intake & Output 12/12 1600 12/12 0800 12/12 0000 Intake Total 1330 140 10 Output Total 1600 1150 Balance -270 140 -1140 Intake, IV 130 140 10 Intake, Oral 1200 Output, Urine 1600 1150 Physical Exam Other Physical Findings: General Appearance: Alert, Oriented X3, Cooperative, No Acute Distress HEENT: Atraumatic, PERRLA, Mucous Membr. moist/pink Cardiovascular: Regular Rate, Normal S1, Normal S2 Lungs: Clear to Auscultation Abdomen: Normal Bowel Sounds, Soft, No Tenderness Extremities: Normal Pulses, No Tenderness/Swelling, R foot dressing in place Results Last 24 Hours of Lab Results: Laboratory Tests 12/12 0750 Chemistry Sodium (137 - 145 mmol/L) 138 Potassium (3.5 - 5.1 mmol/L) 4.7 Chloride (98 - 107 mmol/L) 100 Carbon Dioxide (22 - 30 mmol/L) 27 Anion Gap (5 - 16) 10 BUN (9 - 20 mg/dL) 9 Creatinine (0.7 - 1.2 mg/dL) 0.7 Estimated GFR (>60 ml/min) > 60 BUN/Creatinine Ratio (7 - 25 %) 12.9 TSH (0.270 - 4.200 uIU/mL) 2.520 Free T4 (0.78 - 2.44 ng/dL) 1.69 Cortisol AM Sample (4.46 - 22.7 ug/dL) 13.0 Hematology CBC w Diff NO MAN DIFF REQ WBC (4.8 - 10.8 /CUMM) 7.8 RBC (4.70 - 6.10 /CUMM) 4.05 L Hgb (14.0 - 18.0 G/DL) 10.6 L Hct (42 - 52 %) 32.8 L MCV (80.0 - 94.0 FL) 81.0 MCH (27.0 - 31.0 PG) 26.1 L RDW (11.5 - 14.5 %) 15.9 H Plt Count (130 - 400 /CUMM) 546 H MPV (7.4 - 10.4 FL) 8.2 Gran % (42.2 - 75.2 %) 53.4 Lymphocytes % (20.5 - 51.1 %) 25.3 Monocytes % (1.7 - 9.3 %) 9.6 H Eosinophils % (0 - 5 %) 10.5 H Basophils % (0.0 - 2.0 %) 1.2 Absolute Granulocytes (1.4 - 6.5 /CUMM) 4.2 Absolute Lymphocytes (1.2 - 3.4 /CUMM) 2.0 Absolute Monocytes (0.10 - 0.60 /CUMM) 0.8 H Absolute Eosinophils (0.0 - 0.7 /CUMM) 0.8 Absolute Basophils (0.0 - 0.2 /CUMM) 0.1 PUBS MCHC (33.0 - 37.0 G/DL) 32.3 L Last 24 Hours of Vineet Results: EC #: [id number] TERI: 12/08/16 STATUS: COMP RECD: 12/08/[address]: ANGEL BALTAZAR DPM SOURCE: [facility] ENTR: 12/08/[address]: NAN JOSEPH MD SPDESC: AMOS COLE MD ORDERED: XTRMOR COMMENT: ADDITIONAL INFORMATION: SOFT TISSUE Procedure Result > GRAM STAIN Final 12/09/16-1131 WHITE BLOOD CELLS MANY GRAM POSITIVE COCCI MODERATE IN PAIRS AND CHAINS > EXTREMITIES OR SPECIMEN Final 12/10/16-1032 Heavy growth of: BETA STREP GROUP G Called to/Readback by ERMA by [email or web address] 12/09/16 0915 Penicillin and Ampicillin are drugs of choice for beta-hemolytic streptococcal infections. Susceptibility testing of penicillins and other beta-lactams are not routinely performed because non-susceptible isolates have only rarely been reported. Note: If patient is allergic to Penicillin, the laboratory can perform Clindamycin testing upon request. Please call within 5 days of final report. Recent Imaging Studies: Foot MRI 12/07 IMPRESSION: Progression since 05/02/2016, now with evidence of a septic 3rd MTP joint with osteomyelitis of the metatarsal head and proximal phalanx. The fluid collection extends along the plantar aspect medially, with a probable septic arthritis of the 2nd MTP joint although no convincing evidence of an associated osteomyelitis of this joint. There is marrow edema at the plantar aspect of the 4th metatarsal head which may be reactive although early osteomyelitis cannot be excluded. DICTATED BY: KIYA MOTA MD DATE/TIME DICTATED:12/07/161617 PRIMING POWDER PREMIX BLENDER:BETH DATE/TIME TRANSCRIBED:12/07/161617 Assessment/Plan Impression: 71-year-old man with diabetes, with a neuropathy, status post multiple surgeries on both feet, last hospitalized 7 months for right foot plantar space MSSA abscess and incomplete healing of the plantar ulcer, admitted on December 07. Septic 3rd MTP joint with osteomyelitis of the metatarsal head and proximal phalanx and probable septicarthritis of the 2nd MTP joint Question if recurrent fever. Treated w/ iv Unasyn for osteomyelitis of the right foot; POD #4 status post open partial second, third and fourth ray resections, with the bone culture from the OR positive for Group G strep and a second gram- positive cocci (for which sensitivity is pending). Suggestion: 1. Await return to the OR tomorrow; obtain local cx. 2. If truly febrile previous day please obtain BC x2; PICC line placement if BC neg. 3. Trend CBC, BMP, ESR. 4. Continue Unasyn 3gm iv q 6 h D #5 pending repeat OR cultures.
--- NOTE | 2016-12-12 16:46 | PN- Housestaff ---
Subjective Follow-up For: R Osteomyletitis Uncontrolled DM Subjective: Pt states he is doing well today. Pt denies pain in foot, chest pain, palpitaitons, fever/chills, n/v/c/d, abdominal pain. Review of Systems Constitutional: Denies: no symptoms. Cardiovascular: Denies: no symptoms. Respiratory: Denies: no symptoms. Gastrointestinal: Denies: no symptoms. Genitourinary: Denies: no symptoms. Musculoskeletal: Denies: no symptoms. Objective Last 24 Hrs of Vital Signs/I&O Vital Signs Date Time Temp Pulse Resp B/P B/P Pulse O2 O2 Flow FiO2 Mean Ox Delivery Rate 12/12 1502 97.9 65 20 144/70 96 Room Air 12/12 0646 98.7 66 20 160/76 95 Room Air 12/11 2225 98.7 61 19 130/60 95 Room Air Intake & Output 12/12 1600 12/12 0800 12/12 0000 Intake Total 1330 140 10 Output Total 1600 1150 Balance -270 140 -1140 Intake, IV 130 140 10 Intake, Oral 1200 Output, Urine 1600 1150 Physical Exam General Appearance: Alert, Oriented X3, Cooperative, No Acute Distress HEENT: Atraumatic, EOMI, Mucous Membr. moist/pink Cardiovascular: Regular Rate, Normal S1, Normal S2 Lungs: Clear to Auscultation Abdomen: Normal Bowel Sounds, Soft, No Tenderness Extremities: Normal Pulses, No Tenderness/Swelling, R foot bandaged in surgical dressing Assessment/Plan Assessment: Pt is a 71 y/o male with PMH signficant for DM insulin dependent (HbA1c: 8.1), repeated osteomyelitis of both feet, with recent skin graft in May of [address] Jones and Dr. Singh admitted for osteomyelitis. Pt is admitted to the general medicine floor for management of the followin. RLE Osteomyeltis- pt came in with suspected osteomyelitis of the R foot confirmed by MRI - Pt has been afebrile, normotensive with a normal HR and RR, saturating in mid90s on room air - ESR elevated at 35 - Blood cultures negative to date - Pt started on Unasyn by Dr. Jones, will continue - Bone biopsy: positive for beta hemolytic strep and gram positive cocci- called lab still pending (will wait for ID and sensitivities to see if abx need to be changed) - Thank you ID consult. Will f/u c cultures and con't Unasyn - post op baseline ESR and x-ray of R foot after surgery next week 2. Euvolemic Hyponatremia- pt's BEP revealed a Na of 129 on admission. Pt's corrected Na for hyperglycemia: 131. Pt has been on a thiazide diuretic with low serum osmolality, high urine osmolality with high urine Na >40 indicating inappropriate retention of water as seen in SIADH or interference with NaCl cotransporter which occurs with thiazides. Other causes of euvolemic hyponatremia with elevated urine na and urine osm includes glucocorticoid deficiency and hypothyroidism. -Na is improvin today -TSH and T4: 2.520 and 1.69, respectively -A.M cortisol: 13.0 3. H/O DM - start on novology SS w/ accu-checks - Endocrinology consulted. Thank you for recommendations: per Dr. Barclay: -levemir 15 units BID - SS NovoLog before meals: -B to 150 --> 4 units insulin -B-200 --> 6 units insulin -B-250 --> 7 units insulin -B-300 --> 8 units insulin -B-350 --> 9 units insulin -B-400 --> 10 units insulin - SS Novolog at bedtime (seperate from above): -BG: <250 --> NO insulin -B-300 --> 2 units insulin -B-350 --> 3 units insulin -B-400 --> 4 units insulin 4. H/O HTN - continue lisinopril 5mg daily - holding thiazide due to hyponatremia - consider adding another antihypertensive if bp rises 5. H/O HLD - continue atorvastatin 10mg daily DVT PPx: Lovenox Diet: carbohydrate, NPO after midnight Code: Full Problem List: 1. Diabetes 2. Osteomyelitis of right foot 3. Hyponatremia Pain Ratin Pain Location: none Pain Goal: Remain pain free Pain Plan: pain meds PRN Tomorrow's Labs & Rationales: cbc bep INR Consulting Request: Consulting Specialty: Podiatry Consulting Physician: Dr. Jones
[2016-12-12 22:29] VITALS: BP 148/74
[2016-12-13 06:21] VITALS: BP 142/76
--- NOTE | 2016-12-13 07:24 | PN- Housestaff ---
Subjective Follow-up For: R foot osteomyeltis Uncontrolled Diabetes Subjective: Pt states he is doing well today. Denies pain in foot. Denies n/v/c/d, abdominal pain, fever/chills, SOB or chest pain. States he is anxious about going back to the OR and receiving the PICC. Pt is otherwise doing well and is very pleased with his bg readings today. No acute events overnight. Review of Systems Constitutional: Denies: no symptoms. Cardiovascular: Denies: no symptoms. Respiratory: Denies: no symptoms. Gastrointestinal: Denies: no symptoms. Genitourinary: Denies: no symptoms, see HPI. Musculoskeletal: Denies: no symptoms. Objective Last 24 Hrs of Vital Signs/I&O Vital Signs Date Time Temp Pulse Resp B/P B/P Pulse O2 O2 Flow FiO2 Mean Ox Delivery Rate 12/13 1420 98.6 64 20 154/70 96 Room Air 12/13 1048 63 148/72 12/13 0621 98.2 63 20 142/76 96 Room Air 12/12 2229 98.6 60 19 148/74 96 Intake & Output 12/13 1600 12/13 0800 12/13 0000 Intake Total 800 780 Output Total 851 641 9788 Balance -400 100 -225 Intake, IV 800 300 Intake, Oral 480 Output, Urine 006 321 7729 Physical Exam General Appearance: Alert, Oriented X3, Cooperative, No Acute Distress HEENT: Atraumatic, Mucous Membr. 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 Jones and Dr. Singh admitted for osteomyelitis. Pt is admitted to the general medicine floor for management of the followin. RLE Osteomyeltis- pt came in with suspected osteomyelitis of the R foot confirmed by MRI - Pt has been afebrile, normotensive with a normal HR and RR, saturating in mid90s on room air - ESR elevated at 35, repeat ESR for tomorrow - Blood cultures negative to date - Pt started on Unasyn by Dr. Jones, will continue - Bone biopsy: positive for beta hemolytic strep and gram positive cocci- called lab still pending (will wait for ID and sensitivities to see if abx need to be changed) - Thank you ID consult. Will f/u c cultures and con't Unasyn - post op baseline ESR and x-ray of R foot after surgery next week - Pt is going to OR for amputation of remaining digits with Dr. Jones. Will follow recommendations per Dr. Jones - PICC line placement tomorrow 2. Euvolemic Hyponatremia- pt's BEP revealed a Na of 129 on admission. Pt's corrected Na for hyperglycemia: 131. Pt has been on a thiazide diuretic with low serum osmolality, high urine osmolality with high urine Na >40 indicating inappropriate retention of water as seen in SIADH or interference with NaCl cotransporter which occurs with thiazides. Other causes of euvolemic hyponatremia with elevated urine na and urine osm includes glucocorticoid deficiency and hypothyroidism. -Na is improvin today -TSH and T4: 2.520 and 1.69, respectively -A.M cortisol: 13.0 3. H/O DM - start on novology SS w/ accu-checks - Endocrinology consulted. Thank you for recommendations: per Dr. Barclay: -levemir 15 units BID - SS NovoLog before meals: -B to 150 --> 4 units insulin -B-200 --> 6 units insulin -B-250 --> 7 units insulin -B-300 --> 8 units insulin -B-350 --> 9 units insulin -B-400 --> 10 units insulin - SS Novolog at bedtime (seperate from above): -BG: <250 --> NO insulin -B-300 --> 2 units insulin -B-350 --> 3 units insulin -B-400 --> 4 units insulin - glucose readings have improved with the new regimen- mornin 4. H/O HTN - continue lisinopril 5mg daily - holding thiazide due to hyponatremia - consider adding another antihypertensive if bp rises 5. H/O HLD - continue atorvastatin 10mg daily DVT PPx: Lovenox Diet: carbohydrate, NPO after midnight Code: Full Problem List: 1. Diabetes Pain Ratin Pain Location: foot Pain Goal: Remain pain free Pain Plan: tylenol PRN Tomorrow's Labs & Rationales: cbc bep esr Consulting Request: Consulting Specialty: Podiatry Consulting Physician: Dr. Jones
--- NOTE | 2016-12-13 07:35 | PN- Diabetes ---
Assessment/Plan Assessment: Patient is presently nothing by mouth and awaiting surgery this afternoon. He is on D5 half-normal saline at 100 mL per hour. He was given only 8 units of Levemir last night and is on every 4 hour NovoLog coverage. His blood sugar this morning was 125. Plan: Suggest continue the present regimen for now while the patient is nothing by mouth. When the patient returns for surgery and is eating again we need to place him back on his mealtime coverage with NovoLog with a separate bedtime scale and resume his previous dose of Levemir which was 15 units twice a day. Subjective Subjective: Feels okay Review of Systems Constitutional: Denies: chills, fever. Cardiovascular: Denies: chest pain. Respiratory: Denies: short of breath. Gastrointestinal: Denies: abdominal pain, nausea. Objective Last 24 Hrs of Vital Signs/I&O Vital Signs Date Time Temp Pulse Resp B/P B/P Pulse O2 O2 Flow FiO2 Mean Ox Delivery Rate 12/13 620 98.2 63 20 142/76 96 Room Air 12/12 2228 98.6 60 19 148/74 96 12/12 1502 97.9 65 20 144/70 96 Room Air Intake & Output 12/13 0812/13 0000 12/12 1600 Intake Total 947 905 8925 Output Total 700 1005 1600 Balance 100 -225 -270 Intake, IV 800 300 130 Intake, Oral 480 1200 Output, Urine 700 1005 1600 Vital Signs Date Time Temp Pulse Resp B/P B/P Pulse O2 O2 Flow FiO2 Mean Ox Delivery Rate 12/13 620 98.2 63 20 142/76 96 Room Air 12/12 2228 98.6 60 19 148/74 96 12/12 1502 97.9 65 20 144/70 96 Room Air Intake & Output 12/13 0800 12/13 0000 12/12 1600 Intake Total 397 036 5736 Output Total 700 1005 1600 Balance 100 -225 -270 Intake, IV 800 300 130 Intake, Oral 480 1200 Output, Urine 700 1005 1600 Physical Exam General Appearance: well developed/nourished, alert, awake, comfortable Head: normal appearance Neck: normal inspection Respiratory: normal breath sounds Cardiovascular: regular rate/rhythm Abdomen: normal bowel sounds Extremities: right foot bandaged Current Medications: Current Medications Sig/Ruth Start time Last Medication Dose Route Stop Time Status Admin Acetaminophen 650 MG Q6P PRN 12/07 1530 AC 07/15 PO 0258 Ampicillin Sodium/ 3,000 MG Q6 12/08 1800 AC 12/13 Sulbactam Sodium IV 0506 Sodium Chloride 100 ML Aspirin 81 MG DAILY 12/08 1000 AC 12/12 PO 1004 Atorvastatin Calcium 10 MG 1700 12/07 1700 AC 12/12 PO 1727 Dextrose/Sodium 1,000 ML Q10H 12/12 2200 AC 12/12 Chloride IV 2220 Ferrous Sulfate 325 MG DAILY 12/08 1000 AC 12/12 PO 1004 Heparin Sodium 5,000 UNIT Q8 12/10 1417 AC 12/12 (Porcine) SC 2227 Ibuprofen 600 MG Q6P PRN 12/07 1530 AC PO Insulin Aspart 0 AT BEDTIME 12/12 2200 CAN SC Insulin Aspart 0 Q4 12/12 1800 AC 12/13 SC 0208 Insulin Aspart 0 TIDAC 12/12 0800 DC 12/12 SC 1148 Insulin Detemir 8 UNITS BID 12/12 2200 DC 12/12 SC 12/12 2201 2225 Insulin Detemir 15 UNITS BID 12/12 1000 DC 12/12 SC 1004 Lisinopril 5 MG DAILY 12/08 1000 AC 12/12 PO 1004 Morphine Sulfate 1 MG Q6-PRN PRN 12/07 1530 AC IV Patient Medication 1 ED .STK-MED ONE 12/12 1409 [place] Teaching ED 12/12 1410 Findings Pertinent Lab/Vineet Results: Laboratory Tests 12/12 0750 Chemistry Sodium (137 - 145 mmol/L) 138 Potassium (3.5 - 5.1 mmol/L) 4.7 Chloride (98 - 107 mmol/L) 100 Carbon Dioxide (22 - 30 mmol/L) 27 Anion Gap (5 - 16) 10 BUN (9 - 20 mg/dL) 9 Creatinine (0.7 - 1.2 mg/dL) 0.7 Estimated GFR (>60 ml/min) > 60 BUN/Creatinine Ratio (7 - 25 %) 12.9 TSH (0.270 - 4.200 uIU/mL) 2.520 Free T4 (0.78 - 2.44 ng/dL) 1.69 Cortisol AM Sample (4.46 - 22.7 ug/dL) 13.0 Hematology CBC w Diff NO MAN DIFF REQ WBC (4.8 - 10.8 /CUMM) 7.8 RBC (4.70 - 6.10 /CUMM) 4.05 L Hgb (14.0 - 18.0 G/DL) 10.6 L Hct (42 - 52 %) 32.8 L MCV (80.0 - 94.0 FL) 81.0 MCH (27.0 - 31.0 PG) 26.1 L RDW (11.5 - 14.5 %) 15.9 H Plt Count (130 - 400 /CUMM) 546 H MPV (7.4 - 10.4 FL) 8.2 Gran % (42.2 - 75.2 %) 53.4 Lymphocytes % (20.5 - 51.1 %) 25.3 Monocytes % (1.7 - 9.3 %) 9.6 H Eosinophils % (0 - 5 %) 10.5 H Basophils % (0.0 - 2.0 %) 1.2 Absolute Granulocytes (1.4 - 6.5 /CUMM) 4.2 Absolute Lymphocytes (1.2 - 3.4 /CUMM) 2.0 Absolute Monocytes (0.10 - 0.60 /CUMM) 0.8 H Absolute Eosinophils (0.0 - 0.7 /CUMM) 0.8 Absolute Basophils (0.0 - 0.2 /CUMM) 0.1 PUBS MCHC (33.0 - 37.0 G/DL) 32.3 L
--- NOTE | 2016-12-13 08:25 | PN- Att Addend ---
Attending Addendum Attending Brief Note Patient seen and examined. Plan of care discussed with the medical team and the patient. Available lab work and radiology test reports were reviewed. Patient appears awake alert and without any distress. Denies any recent fever or chills. He is NPO to go to OR today. He denies any nausea vomiting or diarrhea or any new skin rashes. Denies any recent cough or sputum production or difficulty breathing Vital Signs Date Time Temp Pulse Resp B/P B/P Pulse O2 O2 Flow FiO2 Mean Ox Delivery Rate 12/13 620 98.2 63 20 142/76 96 Room Air 12/12 2229 98.6 60 19 148/74 96 12/12 1502 97.9 65 20 144/70 96 Room Air Intake & Output 12/13 1600 12/13 0800 12/13 0000 Intake Total 800 780 Output Total 700 1005 Balance 100 -225 Intake, IV 800 300 Intake, Oral 480 Output, Urine 700 1005 Exam: General: Patient awake alert oriented without any distress CVS: S1 plus S2 without any murmur or gallops Chest: Few scattered crepitation without any wheeze. There is no respiratory distress. Abdomen: Soft nontender, bowel sound present, no guarding or rebound MUSHROOM FARMER: Awake alert oriented without any focal neuro deficit and follows command appropriately Extremities: No edema; no clubbing or cyanosis noted ; right foot is dressed and was not opened. Laboratory Tests 12/13 07 Chemistry Sodium (137 - 145 mmol/L) 138 Potassium (3.5 - 5.1 mmol/L) 4.8 Chloride (98 - 107 mmol/L) 101 Carbon Dioxide (22 - 30 mmol/L) 28 Anion Gap (5 - 16) 10 BUN (9 - 20 mg/dL) 11 Creatinine (0.7 - 1.2 mg/dL) 0.8 Estimated GFR (>60 ml/min) > 60 BUN/Creatinine Ratio (7 - 25 %) 13.8 Coagulation PT (9.4 - 12.5 SEC) 11.6 INR (0.90 - 1.17) 1.11 Hematology CBC w Diff NO MAN DIFF REQ WBC (4.8 - 10.8 /CUMM) 9.4 RBC (4.70 - 6.10 /CUMM) 4.14 L Hgb (14.0 - 18.0 G/DL) 10.8 L Hct (42 - 52 %) 33.2 L MCV (80.0 - 94.0 FL) 80.2 MCH (27.0 - 31.0 PG) 26.0 L RDW (11.5 - 14.5 %) 15.8 H Plt Count (130 - 400 /CUMM) 541 H MPV (7.4 - 10.4 FL) 7.9 Gran % (42.2 - 75.2 %) 54.8 Lymphocytes % (20.5 - 51.1 %) 25.5 Monocytes % (1.7 - 9.3 %) 9.8 H Eosinophils % (0 - 5 %) 9.1 H Basophils % (0.0 - 2.0 %) 0.8 Absolute Granulocytes (1.4 - 6.5 /CUMM) 5.2 Absolute Lymphocytes (1.2 - 3.4 /CUMM) 2.4 Absolute Monocytes (0.10 - 0.60 /CUMM) 0.9 H Absolute Eosinophils (0.0 - 0.7 /CUMM) 0.9 Absolute Basophils (0.0 - 0.2 /CUMM) 0.1 PUBS MCHC (33.0 - 37.0 G/DL) 32.4 L Assessment * Right foot osteomyelitis most likely due to group B strep * Hyponatremia * History of diabetes * History of hyperlipidemia * History of hypertension * Recurrent fever while on antibiotics Plan * Plan to go back to operation theater for further debridement today * Continue sliding scale as recommended by endocrinology. Pt to resume levimir after return from OR. * Podiatary to recommend next step. Will plan to insert PICC line.
[2016-12-13 08:39] LABS: ABSOLUTE BASOPHIL COUNT 0.1 /CUMM (0.0-0.2); ABSOLUTE EOSINOPHIL COUNT 0.9 /CUMM (0.0-0.7); ABSOLUTE GRANULOCYTE CT 5.2 /CUMM (1.4-6.5); ABSOLUTE LYMPH COUNT 2.4 /CUMM (1.2-3.4); ABSOLUTE MONOCYTE COUNT 0.9 /CUMM (0.10-0.60); BASOPHIL % 0.8 % (0.0-2.0); EOSINOPHIL % 9.1 % (0-5); GRANULOCYTE % 54.8 % (42.2-75.2); HEMATOCRIT 33.2 % (42-52); MEAN CORPUSCULAR HGB CONC 32.4 G/DL (33.0-37.0); MEAN CORPUSCULAR VOLUME 80.2 FL (80.0-94.0); MEAN PLATELET VOLUME 7.9 FL (7.4-10.4); PLATELET COUNT 541 /CUMM (130-400); RBC DISTRIBUTION WIDTH 15.8 % (11.5-14.5); RED BLOOD CELL CT 4.14 /CUMM (4.70-6.10); WHITE BLOOD CELL COUNT 9.4 /CUMM (4.8-10.8)
[2016-12-13 08:42] LABS: PT 11.6 SEC (9.4-12.5)
--- NOTE | 2016-12-13 11:22 | PN- Infect Dx ---
Subjective Subjective: No fever; currently NPO; awaits sx this afternoon. Review of Systems Comments: 12 points reviewed as noted, otherwise negative. Objective Last 24 Hrs of Vital Signs/I&O Vital Signs Date Time Temp Pulse Resp B/P B/P Pulse O2 O2 Flow FiO2 Mean Ox Delivery Rate 12/13 1048 63 148/72 12/13 0621 98.2 63 20 142/76 96 Room Air 12/12 2229 98.6 60 19 148/74 96 12/12 1502 97.9 65 20 144/70 96 Room Air Intake & Output 12/13 1600 12/13 0800 12/13 0000 Intake Total 800 780 Output Total 700 1005 Balance 100 -225 Intake, IV 800 300 Intake, Oral 480 Output, Urine 700 1005 Physical Exam Other Physical Findings: General Appearance: Alert, Oriented X3, Cooperative, No Acute Distress HEENT: Atraumatic, PERRLA, Mucous Membr. moist/pink Cardiovascular: Regular Rate, Normal S1, Normal S2 Lungs: Clear to Auscultation Abdomen: Normal Bowel Sounds, Soft, No Tenderness Extremities: Normal Pulses, No Tenderness/Swelling, R foot dressing in place Results Last 24 Hours of Lab Results: Laboratory Tests 12/13 0700 Chemistry Sodium (137 - 145 mmol/L) 138 Potassium (3.5 - 5.1 mmol/L) 4.8 Chloride (98 - 107 mmol/L) 101 Carbon Dioxide (22 - 30 mmol/L) 28 Anion Gap (5 - 16) 10 BUN (9 - 20 mg/dL) 11 Creatinine (0.7 - 1.2 mg/dL) 0.8 Estimated GFR (>60 ml/min) > 60 BUN/Creatinine Ratio (7 - 25 %) 13.8 Coagulation PT (9.4 - 12.5 SEC) 11.6 INR (0.90 - 1.17) 1.11 Hematology CBC w Diff NO MAN DIFF REQ WBC (4.8 - 10.8 /CUMM) 9.4 RBC (4.70 - 6.10 /CUMM) 4.14 L Hgb (14.0 - 18.0 G/DL) 10.8 L Hct (42 - 52 %) 33.2 L MCV (80.0 - 94.0 FL) 80.2 MCH (27.0 - 31.0 PG) 26.0 L RDW (11.5 - 14.5 %) 15.8 H Plt Count (130 - 400 /CUMM) 541 H MPV (7.4 - 10.4 FL) 7.9 Gran % (42.2 - 75.2 %) 54.8 Lymphocytes % (20.5 - 51.1 %) 25.5 Monocytes % (1.7 - 9.3 %) 9.8 H Eosinophils % (0 - 5 %) 9.1 H Basophils % (0.0 - 2.0 %) 0.8 Absolute Granulocytes (1.4 - 6.5 /CUMM) 5.2 Absolute Lymphocytes (1.2 - 3.4 /CUMM) 2.4 Absolute Monocytes (0.10 - 0.60 /CUMM) 0.9 H Absolute Eosinophils (0.0 - 0.7 /CUMM) 0.9 Absolute Basophils (0.0 - 0.2 /CUMM) 0.1 PUBS MCHC (33.0 - 37.0 G/DL) 32.4 L Last 24 Hours of Vineet Results: n/a Recent Imaging Studies: n/a Assessment/Plan Impression: 71-year-old man with diabetes, with a neuropathy, status post multiple surgeries on both feet, last hospitalized 7 months for right foot plantar space MSSA abscess and incomplete healing of the plantar ulcer, admitted on December 07. Septic 3rd MTP joint with osteomyelitis of the metatarsal head and proximal phalanx and probable septicarthritis of the 2nd MTP joint Question if recurrent fever. Treated w/ iv Unasyn for osteomyelitis of the right foot; POD #5 status post open partial second, third and fourth ray resections, with the bone culture from the OR positive for Group G strep and a second gram- positive cocci, for which sensitivity is still pending(?). Suggestion: 1. Await return to the OR; obtain local cx. 2. PICC line placement this week. 3. Trend CBC, BMP, ESR. 4. Continue Unasyn 3gm iv q 6 h D #6 pending repeat OR cultures.
[2016-12-13 14:20] VITALS: BP 154/70
--- NOTE | 2016-12-13 16:21 | Operative Report ---
Operative/Inv Procedure Report Surgery Date: 12/13/16 Name of Procedure: 1 transmetatarsal amputation right foot 2 delayed primary closure of open surgical wound right 3 intraoperative administration of ankle block anesthesia 4 excisional debridement Pre-Operative Diagnosis: 1 open necrotic wound right foot 2 osteomyelitis right foot 3 diabetic peripheral neuropathy Post-Operative Diagnosis: The same Estimated Blood Loss: less than 50ml Surgeon/Supervisor: ANGEL BALTAZAR DPM Anesthesia: moderate sedation, block Operative/Procedure Note Note: After obtaining informed consent the patient was brought to the operating room and placed on the operating table in the supine position. The patient isn't securely fastened to the operating table utilizing safety belt. After administration of IV sedation, 10 mL of 0.5% Marcaine plain was infiltrated about the patient's right ankle. The right foot and ankle within scrubbed prepped and draped in usual aseptic manner. Attention was directed the right foot, where a fishmouth-type incision encompassing the first and fifth digits along with the stumps of the second third and fourth metatarsals were incised with 15 blade full-thickness flaps were developed dorsally and plantarly. The first second third fourth and fifth metatarsal shafts were revised with a sagittal bone saw. The distal osseous segments were freed and passed from the operative field. Nipple was then irrigated with 3 L normal sterile saline fissure 50,000 units of bacitracin. Following this, the foot was redraped and the surgeon's top was changed clean gloves. Any bleeding vessels identified were cauterized or ligated as encountered. The deep tissues were then reapproximated with 2-0 Vicryl and the septae stitches reapproximated 3-0 Vicryl. The skin edges were then reapproximated with 3-0 nylon and skin caleb. Incision was dressed with Xeroform 4 x 4's Kerlix and an Feliciano wrap. The patient was noted tolerate both procedure and anesthesia well and the patient was transported from the operating room to recovery by sent stable and vascular status intact to both the dorsal and plantar flaps.
[2016-12-13 21:27] VITALS: BP 140/80
--- NOTE | 2016-12-14 07:25 | PN- Housestaff ---
Subjective Follow-up For: R foot osteomyelitis Uncontrolled Diabetes Subjective: Pt states he is doing well today. Denies any pain in the foot. Denies chest pain , SOB, n/v/c/d, fever/chills, or urinary symptoms. Pt states he is anxious about PICC placement. No acute events overnight. Review of Systems Constitutional: Denies: no symptoms. Cardiovascular: Denies: no symptoms. Respiratory: Denies: no symptoms. Gastrointestinal: Denies: no symptoms. Genitourinary: Denies: no symptoms. Musculoskeletal: Denies: no symptoms. Objective Last 24 Hrs of Vital Signs/I&O Vital Signs Date Time Temp Pulse Resp B/P B/P Pulse O2 O2 Flow FiO2 Mean Ox Delivery Rate 12/14 1426 98.9 73 16 128/60 97 Room Air 12/14 0745 98.6 65 20 142/69 95 Room Air Intake & Output 12/14 1600 12/14 0800 12/14 0000 Intake Total 1300 480 240 Output Total 1370 850 Balance -70 -370 240 Intake, IV 300 Intake, Oral 1000 480 240 Output, Urine 1370 850 Physical Exam General Appearance: Alert, Oriented X3, Cooperative, No Acute Distress HEENT: Atraumatic, PERRLA, EOMI, Mucous Membr. moist/pink Cardiovascular: Regular Rate, Normal S1, Normal S2 Lungs: Clear to Auscultation Abdomen: Normal Bowel Sounds, Soft, No Tenderness Extremities: Normal Pulses, No Tenderness/Swelling, Right foot bandaged in surgical dressing Assessment/Plan Assessment: Pt is a 71 y/o male with PMH signficant for DM insulin dependent (HbA1c: 8.1), repeated osteomyelitis of both feet, with recent skin graft in May of [address] Jones and Dr. Singh admitted for osteomyelitis. Pt is admitted to the general medicine floor for management of the followin. RLE Osteomyeltis- pt came in with suspected osteomyelitis of the R foot confirmed by MRI - Pt has been afebrile, normotensive with a normal HR and RR, saturating in mid90s on room air - ESR elevated at 35, repeat ESR for tomorrow - Blood cultures negative to date - Pt started on Unasyn by Dr. Jones, will continue - Bone biopsy: positive for beta hemolytic strep, other organism coag negative staph (likely a contaminant). Will continue on Unasyn 3000mg q6h - Thank you ID consult. Will f/u c cultures and con't Unasyn - post op baseline ESR and x-ray of R foot after surgery next week - Pt had remainder of digits of R foot amputated and delayed closure of wound today. - PICC line placement today 2. Euvolemic Hyponatremia- pt's BEP revealed a Na of 129 on admission. Pt's corrected Na for hyperglycemia: 131. Pt has been on a thiazide diuretic with low serum osmolality, high urine osmolality with high urine Na >40 indicating inappropriate retention of water as seen in SIADH or interference with NaCl cotransporter which occurs with thiazides. Other causes of euvolemic hyponatremia with elevated urine na and urine osm includes glucocorticoid deficiency and hypothyroidism. -Na is improvin today -TSH and T4: 2.520 and 1.69, respectively -A.M cortisol: 13.0 3. H/O DM - start on novology SS w/ accu-checks - Endocrinology consulted. Thank you for recommendations: per Dr. Barclay: -levemir 15 units BID - SS NovoLog before meals: -B to 150 --> 4 units insulin -B-200 --> 6 units insulin -B-250 --> 7 units insulin -B-300 --> 8 units insulin -B-350 --> 9 units insulin -B-400 --> 10 units insulin - SS Novolog at bedtime (seperate from above): -BG: <250 --> NO insulin -B-300 --> 2 units insulin -B-350 --> 3 units insulin -B-400 --> 4 units insulin - glucose readings have improved with the new regimen- mornin 4. H/O HTN - continue lisinopril 5mg daily - holding thiazide due to hyponatremia - consider adding another antihypertensive if bp rises 5. H/O HLD - continue atorvastatin 10mg daily DVT PPx: Lovenox Diet: carbohydrate Code: Full Problem List: 1. Diabetes 2. Osteomyelitis of right foot Pain Ratin Pain Location: right foot Pain Goal: Remain pain free Pain Plan: tylenol PRN Tomorrow's Labs & Rationales: cbc bep esr Consulting Request: Consulting Specialty: Podiatry Consulting Physician: Dr. Jones
[2016-12-14 07:45] VITALS: BP 142/69
--- NOTE | 2016-12-14 07:54 | PN- Diabetes ---
Assessment/Plan Assessment: The patient had surgery yesterday. He feels okay today. He is eating well. Blood sugar last night was 154. Plan: The patient is scheduled for PICC line today. If he goes home after the PICC line he should go home on Levemir 15 units twice a day. He should also go home on sliding scale NovoLog. Sliding-scale NovoLog before meals should be 80-150 give 4 units NovoLog, 151-200 give 6 units NovoLog, 201-250 give 8 units NovoLog , 251-300 give 9 units NovoLog, 3 05/31/1947 give 10 units NovoLog, 351-400 give 11 units NovoLog. The patient can be in touch with my office concerning his sugars if they are not in good control when he returns home. He will also make an office visit.
--- NOTE | 2016-12-14 08:19 | PN- Att Addend ---
Attending Addendum Attending Brief Note Patient seen and examined. Plan of care discussed with the medical team and the patient. Available lab work and radiology test reports were reviewed. Patient appears awake alert and without any distress. Denies any recent fever or chills. He denies any nausea vomiting or diarrhea or any new skin rashes. Denies any recent cough or sputum production or difficulty breathing. Pt was in OR for TMA yesterday. plan for PICC today. Vital Signs Date Time Temp Pulse Resp B/P B/P Pulse O2 O2 Flow FiO2 Mean Ox Delivery Rate 12/14 0745 98.6 65 20 142/69 95 Room Air 12/13 2127 98.0 65 16 140/80 95 Room Air 12/13 1420 98.6 64 20 154/70 96 Room Air 12/13 1048 63 148/72 Intake & Output 12/14 1600 12/14 0800 12/14 0000 Intake Total 480 240 Output Total 350 850 Balance -350 -370 240 Intake, Oral 480 240 Output, Urine 350 850 Exam: General: Patient awake alert oriented without any distress CVS: S1 plus S2 without any murmur or gallops Chest: Few scattered crepitation without any wheeze. There is no respiratory distress. Abdomen: Soft nontender, bowel sound present, no guarding or rebound MEDICAL CARE ADMINISTRATOR: Awake alert oriented without any focal neuro deficit and follows command appropriately Extremities: No edema; no clubbing or cyanosis noted ; right foot is dressed and was not opened. Laboratory Tests 12/14 12/13 0809 1752 Chemistry Sodium (137 - 145 mmol/L) 134 L Potassium (3.5 - 5.1 mmol/L) 5.1 Chloride (98 - 107 mmol/L) 97 L Carbon Dioxide (22 - 30 mmol/L) 28 Anion Gap (5 - 16) 9 BUN (9 - 20 mg/dL) 9 Creatinine (0.7 - 1.2 mg/dL) 0.7 Estimated GFR (>60 ml/min) > 60 BUN/Creatinine Ratio (7 - 25 %) 12.9 Hematology CBC w Diff NO MAN DIFF REQ WBC (4.8 - 10.8 /CUMM) 10.6 RBC (4.70 - 6.10 /CUMM) 3.94 L Hgb (14.0 - 18.0 G/DL) 10.3 L Hct (42 - 52 %) 31.5 L MCV (80.0 - 94.0 FL) 79.8 L MCH (27.0 - 31.0 PG) 26.1 L RDW (11.5 - 14.5 %) 15.9 H Plt Count (130 - 400 /CUMM) 544 H MPV (7.4 - 10.4 FL) 7.7 Gran % (42.2 - 75.2 %) 66.6 Lymphocytes % (20.5 - 51.1 %) 17.9 L Monocytes % (1.7 - 9.3 %) 8.0 Eosinophils % (0 - 5 %) 7.0 H Basophils % (0.0 - 2.0 %) 0.5 Absolute Granulocytes (1.4 - 6.5 /CUMM) 7.0 H Absolute Lymphocytes (1.2 - 3.4 /CUMM) 1.9 Absolute Monocytes (0.10 - 0.60 /CUMM) 0.8 H Absolute Eosinophils (0.0 - 0.7 /CUMM) 0.7 Absolute Basophils (0.0 - 0.2 /CUMM) 0.1 PUBS MCHC (33.0 - 37.0 G/DL) 32.7 L ESR Westergren (0 - 10 MM) 73 H Vital Signs Date Time Temp Pulse Resp B/P B/P Pulse O2 O2 Flow FiO2 Mean Ox Delivery Rate 12/14 0745 98.6 65 20 142/69 95 Room Air 12/13 2127 98.0 65 16 140/80 95 Room Air 12/13 1420 98.6 64 20 154/70 96 Room Air Intake & Output 12/14 1600 12/14 0800 12/14 0000 Intake Total 480 240 Output Total 350 850 Balance -350 -370 240 Intake, Oral 480 240 Output, Urine 350 850 Assessment * Right foot osteomyelitis most likely due to group B strep * Hyponatremia * History of diabetes * History of hyperlipidemia * History of hypertension * Recurrent fever while on antibiotics Plan * Plan for PICC line insertion today * Patient status post delayed wound closure yesterday * Continue sliding scale as recommended by endocrinology. Continue Levemir * Plan for dc in am. Please prepare discharge paperwork
[2016-12-14 09:07] LABS: ABSOLUTE BASOPHIL COUNT 0.1 /CUMM (0.0-0.2); ABSOLUTE EOSINOPHIL COUNT 0.7 /CUMM (0.0-0.7); ABSOLUTE LYMPH COUNT 1.9 /CUMM (1.2-3.4); ABSOLUTE MONOCYTE COUNT 0.8 /CUMM (0.10-0.60); BASOPHIL % 0.5 % (0.0-2.0); GRANULOCYTE % 66.6 % (42.2-75.2); HEMATOCRIT 31.5 % (42-52); MEAN CORPUSCULAR HGB 26.1 PG (27.0-31.0); MEAN CORPUSCULAR HGB CONC 32.7 G/DL (33.0-37.0); MEAN CORPUSCULAR VOLUME 79.8 FL (80.0-94.0); MEAN PLATELET VOLUME 7.7 FL (7.4-10.4); PLATELET COUNT 544 /CUMM (130-400); RBC DISTRIBUTION WIDTH 15.9 % (11.5-14.5); RED BLOOD CELL CT 3.94 /CUMM (4.70-6.10); WHITE BLOOD CELL COUNT 10.6 /CUMM (4.8-10.8)
--- NOTE | 2016-12-14 11:12 | RADIOLOGY REPORT ---
EXAMINATION:\H\ \N\XR CHEST CLINICAL INFORMATION: Osteomyelitis. Check PICC line placement. COMPARISON: 04/07/2011 TECHNIQUE: Frontal view of the chest was obtained. FINDINGS: A right-sided PICC line tip terminates in the superior vena cava. The cardiomediastinal silhouette is normal. The lungs are clear. There is stable mild elevation of the right hemidiaphragm. There is no consolidation, pulmonary edema, pleural effusion, or pneumothorax. The spine is not well visualized due to technique. Mild degenerative changes are visualized. No acute osseous abnormality. IMPRESSION: Right-sided PICC terminating in the superior vena cava. No acute abnormality.
--- NOTE | 2016-12-14 13:37 | PN- Infect Dx ---
Subjective Subjective: POD #1; feeling well; no fever; s/p R PICC line placement. Review of Systems Comments: 12 points reviewed as noted, otherwise negative. Objective Last 24 Hrs of Vital Signs/I&O Vital Signs Date Time Temp Pulse Resp B/P B/P Pulse O2 O2 Flow FiO2 Mean Ox Delivery Rate 12/14 0745 98.6 65 20 142/69 95 Room Air 12/13 2127 98.0 65 16 140/80 95 Room Air 12/13 1420 98.6 64 20 154/70 96 Room Air Intake & Output 12/14 1600 12/14 0800 12/14 0000 Intake Total 480 240 Output Total 350 850 Balance -350 -370 240 Intake, Oral 480 240 Output, Urine 350 850 Physical Exam Other Physical Findings: ther Physical Findings: General Appearance: Alert, Oriented X3, Cooperative, No Acute Distress HEENT: Atraumatic, PERRLA, Mucous Membr. moist/pink Cardiovascular: Regular Rate, Normal S1, Normal S2 Lungs: Clear to Auscultation Abdomen: Normal Bowel Sounds, Soft, No Tenderness Extremities: Normal Pulses, No Tenderness/Swelling, R foot dressing in place Results Last 24 Hours of Lab Results: Laboratory Tests 12/14 12/13 0809 1752 Chemistry Sodium (137 - 145 mmol/L) 134 L Potassium (3.5 - 5.1 mmol/L) 5.1 Chloride (98 - 107 mmol/L) 97 L Carbon Dioxide (22 - 30 mmol/L) 28 Anion Gap (5 - 16) 9 BUN (9 - 20 mg/dL) 9 Creatinine (0.7 - 1.2 mg/dL) 0.7 Estimated GFR (>60 ml/min) > 60 BUN/Creatinine Ratio (7 - 25 %) 12.9 Hematology CBC w Diff NO MAN DIFF REQ WBC (4.8 - 10.8 /CUMM) 10.6 RBC (4.70 - 6.10 /CUMM) 3.94 L Hgb (14.0 - 18.0 G/DL) 10.3 L Hct (42 - 52 %) 31.5 L MCV (80.0 - 94.0 FL) 79.8 L MCH (27.0 - 31.0 PG) 26.1 L RDW (11.5 - 14.5 %) 15.9 H Plt Count (130 - 400 /CUMM) 544 H MPV (7.4 - 10.4 FL) 7.7 Gran % (42.2 - 75.2 %) 66.6 Lymphocytes % (20.5 - 51.1 %) 17.9 L Monocytes % (1.7 - 9.3 %) 8.0 Eosinophils % (0 - 5 %) 7.0 H Basophils % (0.0 - 2.0 %) 0.5 Absolute Granulocytes (1.4 - 6.5 /CUMM) 7.0 H Absolute Lymphocytes (1.2 - 3.4 /CUMM) 1.9 Absolute Monocytes (0.10 - 0.60 /CUMM) 0.8 H Absolute Eosinophils (0.0 - 0.7 /CUMM) 0.7 Absolute Basophils (0.0 - 0.2 /CUMM) 0.1 PUBS MCHC (33.0 - 37.0 G/DL) 32.7 L ESR Westergren (0 - 10 MM) 73 H Last 24 Hours of Vineet Results: SPEC #: [id number] TERI: 12/08/16 STATUS: COMP RECD: 12/08/[address]: ANGEL BALTAZAR DPM SOURCE: EXTREMITIE ENTR: 12/08/[address]: NAN JOSEPH MD SPDESC: SHAMIKA SESAY MD, AMOS ORDERED: XTRMOR COMMENT: ADDITIONAL INFORMATION: SOFT TISSUE Procedure Result > GRAM STAIN Final 12/09/16-1131 WHITE BLOOD CELLS MANY GRAM POSITIVE COCCI MODERATE IN PAIRS AND CHAINS > EXTREMITIES OR SPECIMEN Final 12/10/16-1032 Heavy growth of: BETA STREP GROUP G Called to/Readback by ERMA by [email or web address] 12/09/16 0942 Penicillin and Ampicillin are drugs of choice for beta-hemolytic streptococcal infections. Susceptibility testing of penicillins and other beta-lactams are not routinely performed because non-susceptible isolates have only rarely been reported. Note: If patient is allergic to Penicillin, the laboratory can perform Clindamycin testing upon request. Please call within 5 days of final report. Recent Imaging Studies: CLINICAL INFORMATION: Osteomyelitis. Check PICC line placement. COMPARISON: 04/07/2011 TECHNIQUE: Frontal view of the chest was obtained. FINDINGS: A right-sided PICC line tip terminates in the superior vena cava. The cardiomediastinal silhouette is normal. The lungs are clear. There is stable mild elevation of the right hemidiaphragm. There is no consolidation, pulmonary edema, pleural effusion, or pneumothorax. The spine is not well visualized due to technique. Mild degenerative changes are visualized. No acute osseous abnormality. IMPRESSION: Right-sided PICC terminating in the superior vena cava. No acute abnormality. DICTATED BY: RAJESH VENEGAS MD DATE/TIME DICTATED:12/14/161099 SOLDER SPRAYER:BETH DATE/TIME TRANSCRIBED:12/14/161099 CONFIDENTIAL, DO NOT COPY WITHOUT APPROPRIATE AUTHORIZATION. <Electronically signed in Other Vendor System> SIGNED BY: RAJESH VENEGAS MD 12/14/16 1112 Assessment/Plan Impression: 71-year-old man with diabetes, with a neuropathy, status post multiple surgeries on both feet, last hospitalized 7 months for right foot plantar space MSSA abscess and incomplete healing of the plantar ulcer, admitted on December 07. Septic 3rd MTP joint with osteomyelitis of the metatarsal head and proximal phalanx and probable septicarthritis of the 2nd MTP joint Treated w/ iv Unasyn for osteomyelitis of the right foot; status post revision open partial second, third and fourth ray resections, with the bone culture from the OR positive for Group G strep. S/P surgical intervention 12/13/17 no new cx obtained. Suggestion: 1. PICC line care. Local wound care per sx. 2. Repeat K level 12/15. 3. Trend CBC, BMP, ESR weekly while on iv abx for total 4-6 wks. 4. Continue Unasyn 3gm iv q 6 h D #7 pending repeat OR cultures.
[2016-12-14 14:26] VITALS: BP 128/60
[2016-12-14] MEDS ORDERED: LEVEMIR100 UNIT/1 SC (17:23)
--- NOTE | 2016-12-14 17:27 | Patient Discharge Instructions ---
Discharge Instructions General Discharge Information You were seen/treated for: Right Foot Osteomyelitis Diabetes You had these procedures: Transmetatarsal Amputation and Debridement of Right Foot Watch for these problems: Purulent drainage from surgical site Increased pain and swelling Fever, chills, nausea, vomitting Chest pain and shortness of breath Special Instructions: 1. Follow up with Dr. Jones in the wound center in [address] any weight on the right foot 3. Weekly blood work to monitor infection 4. Follow up with endocrinology (Dr. Barclay) in 1 week 5. Check your sugars 4 times a day at home before meals and bedtime. 6. Follow up with your primary care doctor in 1 week. Acute Coronary Syndrome Inclusion Criteria At DC or during hospital stay patient has or had the following: ACS DIAGNOSIS No Discharge Core Measures Meds if any: Prescribed or Continued at Discharge Meds if any: NOT Prescribed or Continued at Discharge Congestive Heart Failure Inclusion Criteria At DC or during hospital stay patient has or had the following: CHF DIAGNOSIS No Discharge Core Measures Meds if any: Prescribed or Continued at Discharge Meds if any: NOT Prescribed or Continued at Discharge Cerebrovascular accident Inclusion Criteria At DC or during hospital stay patient has or had the following: CVA/TIA Diagnosis No Discharge Core Measures Meds if any: Prescribed or Continued at Discharge Meds if any: NOT Prescribed or Continued at Discharge Venous thromboembolism Inclusion Criteria VTE Diagnosis No VTE Type NONE VTE Confirmed by (Test) NONE Discharge Core Measures - Per Current guidelines, there needs to be overlap - treatment for the first 5 days of Warfarin therapy. - If discharged on Warfarin prior to 5 days of - overlap therapy, the patient will need to be - assessed for post discharge needs including - *Post discharge parental anticoagulation - *Warfarin and/or parental anticoagulation education - *Follow up date to check INR post discharge At least 5 days overlap therapy as Inpatient No Meds if any: Prescribed or Continued at Discharge Note: Overlap Therapy is Warfarin and Anticoagulant Meds if any: NOT Prescribed or Continued at Discharge
[2016-12-14 23:28] VITALS: BP 132/68
--- NOTE | 2016-12-15 07:31 | PN- Housestaff ---
Subjective Follow-up For: R foot osteomyelitis s/p TMA Diabetes Mellitus Subjective: I saw and examined the patient today. States he is doing well. Has no pain in foot. Denies n/v/c/d, fever/chills, abdominal pain, dysuria/hematuria, SOB or chest pain. No acute events overnight. Review of Systems Constitutional: Denies: no symptoms. Cardiovascular: Denies: no symptoms. Respiratory: Denies: no symptoms. Gastrointestinal: Denies: no symptoms. Genitourinary: Denies: no symptoms. Musculoskeletal: Denies: no symptoms. Objective Last 24 Hrs of Vital Signs/I&O Vital Signs Date Time Temp Pulse Resp B/P B/P Pulse O2 O2 Flow FiO2 Mean Ox Delivery Rate 12/15 0803 98.1 62 20 141/70 94 Room Air 12/14 2328 98.9 73 16 132/68 97 12/14 1426 98.9 73 16 128/60 97 Room Air Intake & Output 12/15 1600 12/15 0800 12/15 0000 Intake Total 220 Output Total 900 775 Balance -680 -775 Intake, IV 220 Output, Urine 900 775 Physical Exam General Appearance: Alert, Oriented X3, Cooperative, No Acute Distress HEENT: Atraumatic, Mucous Membr. moist/pink Cardiovascular: Regular Rate, Normal S1, Normal S2 Lungs: Clear to Auscultation Abdomen: Normal Bowel Sounds, Soft, No Tenderness Extremities: No Edema, Normal Pulses, R foot in surgical dressing Assessment/Plan Assessment: Pt is a 71 y/o male with PMH signficant for DM insulin dependent (HbA1c: 8.1), repeated osteomyelitis of both feet, with recent skin graft in May of [address] Jones and Dr. Singh admitted for osteomyelitis. Pt is admitted to the general medicine floor for management of the followin. RLE Osteomyeltis s/p TMA with delayed primary wound closure, POD #1 - Pt came in with suspected osteomyelitis of the R foot confirmed by MRI - Pt has been afebrile, normotensive with a normal HR and RR, saturating in mid90s on room air - ESR elevated at 35 (12/07) --> 73 (12/14) --> post ESR pending today - Blood cultures negative to date - Pt started on Unasyn by Dr. Jones, will continue - Bone biopsy: positive for beta hemolytic strep, other organism coag negative staph (likely a contaminant). Will continue on Unasyn 3000mg q6h - Thank you ID consult. Will f/u c cultures and con't Unasyn - post op baseline ESR and x-ray of R foot after surgery today - Pt had remainder of digits of R foot amputated and delayed closure of wound yesterday - PICC line placement on R arm - Pt will be discharged home today on Unasyn 3000 mg q6h for 4 weeks 2. Euvolemic Hyponatremia- pt's BEP revealed a Na of 129 on admission. Pt's corrected Na for hyperglycemia: 131. Pt has been on a thiazide diuretic with low serum osmolality, high urine osmolality with high urine Na >40 indicating inappropriate retention of water as seen in SIADH or interference with NaCl cotransporter which occurs with thiazides. Other causes of euvolemic hyponatremia with elevated urine na and urine osm includes glucocorticoid deficiency and hypothyroidism. -Na is improvin today -TSH and T4: 2.520 and 1.69, respectively -A.M cortisol: 13.0 3. H/O DM - start on novology SS w/ accu-checks - Endocrinology consulted. Thank you for recommendations: per Dr. Barclay: -levemir 15 units BID - SS NovoLog before meals: -B to 150 --> 4 units insulin -B-200 --> 6 units insulin -B-250 --> 7 units insulin -B-300 --> 8 units insulin -B-350 --> 9 units insulin -B-400 --> 10 units insulin - SS Novolog at bedtime (seperate from above): -BG: <250 --> NO insulin -B-300 --> 2 units insulin -B-350 --> 3 units insulin -B-400 --> 4 units insulin - glucose readings have improved with the new regimen- mornin 4. H/O HTN - continue lisinopril 5mg daily - holding thiazide due to hyponatremia - consider adding another antihypertensive if bp rises 5. H/O HLD - continue atorvastatin 10mg daily DVT PPx: Lovenox Diet: carbohydrate Code: Full Problem List: 1. Osteomyelitis of right foot 2. Hyponatremia 3. Diabetes Pain Ratin Pain Location: R foot Pain Goal: Remain pain free Pain Plan: tylenol PRN Tomorrow's Labs & Rationales: none, discharge today Consulting Request: Consulting Specialty: Podiatry Consulting Physician: Dr. Robert Jones
--- NOTE | 2016-12-15 07:51 | PN- Diabetes ---
Assessment/Plan Assessment: The patient had PICC line inserted yesterday. He feels okay today. He is eating well. Fingerstick sugar is down to 127 this morning. The patient's is on Levemir 15 units twice a day with sliding scale NovoLog before meals and the separate sliding scale at bedtime. Plan: If the patient is discharged home today he can go home on the present insulin regimen. He should check his sugars 4 times a day at home before meals and bedtime. He can call the office if there are any problems and states he will make an appointment to be followed in our office. Subjective Subjective: Feels okay Review of Systems Constitutional: Denies: chills, fever. Cardiovascular: Denies: chest pain. Respiratory: Denies: short of breath. Gastrointestinal: Denies: abdominal pain, nausea, vomiting. Musculoskeletal: Denies: joint pain. Objective Last 24 Hrs of Vital Signs/I&O Vital Signs Date Time Temp Pulse Resp B/P B/P Pulse O2 O2 Flow FiO2 Mean Ox Delivery Rate 12/14 2328 98.9 73 16 132/68 97 12/14 1426 98.9 73 16 128/60 97 Room Air Intake & Output 12/15 0800 12/15 0000 12/14 1600 Intake Total 1300 Output Total 775 1370 Balance -775 -70 Intake, IV 300 Intake, Oral 1000 Output, Urine 775 1370 Vital Signs Date Time Temp Pulse Resp B/P B/P Pulse O2 O2 Flow FiO2 Mean Ox Delivery Rate 12/14 2328 98.9 73 16 132/68 97 12/14 1426 98.9 73 16 128/60 97 Room Air Intake & Output 12/15 0800 12/15 0000 12/14 1600 Intake Total 1300 Output Total 775 1370 Balance -775 -70 Intake, IV 300 Intake, Oral 1000 Output, Urine 775 1370 Physical Exam General Appearance: alert, awake, comfortable Head: normal appearance Neck: normal inspection Respiratory: normal breath sounds Cardiovascular: regular rate/rhythm Abdomen: normal bowel sounds Extremities: right foot bandaged Current Medications: Current Medications Sig/Ruth Start time Last Medication Dose Route Stop Time Status Admin Acetaminophen 650 MG Q6P PRN 12/07 1530 AC 12/10 PO 0258 Ampicillin Sodium/ 3,000 MG Q6 12/08 1800 AC 12/15 Sulbactam Sodium IV 0707 Sodium Chloride 100 ML Aspirin 81 MG DAILY 12/08 1000 AC 12/14 PO 0826 Atorvastatin Calcium 10 MG 1700 07/12 1700 AC 12/14 PO 1742 Ferrous Sulfate 325 MG DAILY 12/08 1000 AC 12/14 PO 0826 Heparin Sodium 5,000 UNIT Q8 12/10 1417 AC 12/15 (Porcine) SC 0707 Ibuprofen 600 MG Q6P PRN 12/07 1530 AC PO Insulin Aspart 0 TIDAC 12/15 0800 AC 12/14 SC 1742 Insulin Aspart 9 UNITS .STK-MED ONE 12/14 1736 DC SC 12/14 1737 Insulin Aspart 0 TIDAC/HS 12/13 2100 DC 12/14 SC 1236 Insulin Detemir 15 UNITS BID 12/14 2200 AC 12/14 SC 2344 Insulin Detemir 13 UNITS BID 12/13 2200 DC 12/14 SC 0825 Lisinopril 5 MG DAILY 12/08 1000 AC 12/14 PO 0826 Morphine Sulfate 1 MG Q6-PRN PRN 12/07 1530 AC IV Patient Medication 1 ED .STK-MED ONE 12/14 1403 PA Teaching ED 12/14 1404 Findings Pertinent Lab/Vineet Results: Laboratory Tests 12/14 12/14 1615 0809 Chemistry Sodium Cancelled Potassium Cancelled Chloride Cancelled Carbon Dioxide Cancelled Anion Gap Cancelled BUN Cancelled Creatinine Cancelled BUN/Creatinine Ratio Cancelled Hematology CBC w Diff NO MAN DIFF REQ WBC (4.8 - 10.8 /CUMM) 10.6 RBC (4.70 - 6.10 /CUMM) 3.94 L Hgb (14.0 - 18.0 G/DL) 10.3 L Hct (42 - 52 %) 31.5 L MCV (80.0 - 94.0 FL) 79.8 L MCH (27.0 - 31.0 PG) 26.1 L RDW (11.5 - 14.5 %) 15.9 H Plt Count (130 - 400 /CUMM) 544 H MPV (7.4 - 10.4 FL) 7.7 Gran % (42.2 - 75.2 %) 66.6 Lymphocytes % (20.5 - 51.1 %) 17.9 L Monocytes % (1.7 - 9.3 %) 8.0 Eosinophils % (0 - 5 %) 7.0 H Basophils % (0.0 - 2.0 %) 0.5 Absolute Granulocytes (1.4 - 6.5 /CUMM) 7.0 H Absolute Lymphocytes (1.2 - 3.4 /CUMM) 1.9 Absolute Monocytes (0.10 - 0.60 /CUMM) 0.8 H Absolute Eosinophils (0.0 - 0.7 /CUMM) 0.7 Absolute Basophils (0.0 - 0.2 /CUMM) 0.1 PUBS MCHC (33.0 - 37.0 G/DL) 32.7 L ESR Westergren (0 - 10 MM) 73 H
[2016-12-15 08:03] VITALS: BP 141/70
--- NOTE | 2016-12-15 10:40 | PN- Att Addend ---
Attending Addendum Attending Brief Note Patient seen and examined. Plan of care discussed with the medical team and the patient. Available lab work and radiology test reports were reviewed. Patient appears awake alert and without any distress. Denies any recent fever or chills. He denies any nausea vomiting or diarrhea or any new skin rashes. Denies any recent cough or sputum production or difficulty breathing. Patient had a PICC line inserted yesterday. Vital Signs Date Time Temp Pulse Resp B/P B/P Pulse O2 O2 Flow FiO2 Mean Ox Delivery Rate 12/15 0803 98.1 62 20 141/70 94 Room Air 12/14 2328 98.9 73 16 132/68 97 12/14 1426 98.9 73 16 128/60 97 Room Air Intake & Output 12/15 1600 12/15 0800 12/15 0000 Intake Total 220 Output Total 900 775 Balance -680 -775 Intake, IV 220 Output, Urine 900 775 Exam: General: Patient awake alert oriented without any distress CVS: S1 plus S2 without any murmur or gallops Chest: Few scattered crepitation without any wheeze. There is no respiratory distress. Abdomen: Soft nontender, bowel sound present, no guarding or rebound [employer]: Awake alert oriented without any focal neuro deficit and follows command appropriately Extremities: No edema; no clubbing or cyanosis noted ; right foot is dressed and was not opened. Laboratory Tests 12/14 1615 Chemistry Sodium Cancelled Potassium Cancelled Chloride Cancelled Carbon Dioxide Cancelled Anion Gap Cancelled BUN Cancelled Creatinine Cancelled BUN/Creatinine Ratio Cancelled Assessment * Right foot osteomyelitis most likely due to group B strep; status post secondary wound closure * Hyponatremia * History of diabetes * History of hyperlipidemia * History of hypertension * Recurrent fever while on antibiotics Plan * Discharge home today. Continue antibiotics at home via PICC line for 4-6 week * Follow-up with podiatry and endocrinology * Continue sliding scale as recommended by endocrinology. Continue Levemir * Total time spent in preparation for discharge plan, patient education, and CMR preparation was 35 minutes.
[2016-12-15] MEDS ORDERED: UNASYN 3 GM VIAL3 GM IV ×3 (10:49→11:08)
[2016-12-15] MEDS ORDERED: NOVOLOG100 UNIT/2 SC ×3 (10:59→13:21)
--- NOTE | 2016-12-15 12:16 | RADIOLOGY REPORT ---
EXAMINATION: XR FOOT, RIGHT CLINICAL INFORMATION: Post surgical x-ray. Osteomyelitis. COMPARISON: 12/07/2016 TECHNIQUE: AP, lateral, and oblique views of the right foot. FINDINGS: The patient is status post recent transmetatarsal amputation. No erosive osseous changes. Skin caleb are seen along the amputation site. Mild soft tissue swelling. No ankle joint effusion. IMPRESSION: Transmetatarsal amputation. No erosive osseous changes. Soft tissue swelling with skin caleb at the amputation stump.
--- NOTE | 2016-12-15 12:53 | Discharge Summary ---
Visit Information Visit Dates Admission Date: 12/07/16 Discharge Date: 12/15/16 Hospital Course Course Attending Physician: JERZY ALVAREZ,KESHAV Primary Care Physician: AMOS SESAY MD Consulting Request: Consulting Specialty: Podiatry Consulting Physician: Dr. Jones Hospital Course: Pt is a 71 y/o male with PMH significant for DM (HbA1c: 8.1), peripheral neuropathy, previous history of osteomyelitis on R foot w/skin graft admitted to ED for increase foul smelling discharge from site of previous skin graft and fever. On admission: Temp: 100.0, pulse 97, sedimentation rate 18, blood pressure 123/74 on room air. Pertinent labs on admission leukocytosis: 13.5, H&H low but stable. Hyponatremia 129, blood glucose level :249, normal lactic acid on admission Right foot x-ray: Compared to 06/08/2016, there are new metatarsal and phalangeal erosions of the third metatarsophalangeal joint, suspicious for septic arthritis and osteomyelitis. Pt admitted to the general medical floor for management of the followin. RLE Osteomyeltis s/p TMA- Pt came in with suspected osteomyelitis of the R foot confirmed by MRI. Bone biopsy from 12/08/2016: positive for beta hemolytic strep, other organism coag negative staph (likely a contaminant). - Pt was taken to the OR by Dr. Jones on 12/08/2016: * open incision and drainage deep to the deep fascia with exposure of the extensor and flexor tendon and tendon sheath multiple sites right foot * open partial second third and fourth ray resection right foot * intraoperative administration of ankle block anesthesia * excisional debridement - Pt was started on Unasyn 3000mg q6h on 12/08/[address] Jones - Pt was taken back to the OR by Dr. Jones on 12/13/2016: * transmetatarsal amputation right foot * delayed primary closure of open surgical wound right * intraoperative administration of ankle block anesthesia * excisional debridement - PICC line was placed without complications for an extended duration of antibiotic therapy outpatient - ID was consulted. Unasyn was continued and ESR trended. * post op ESR: 73 * post op R foot xray: Transmetatarsal amputation. No erosive osseous changes. Soft tissue swelling with skin caleb at the amputation stump. * Pt should have minimum of 4 weeks of antibiotic therapy: Unasyn 3gm IV Q6H. Pt sent home with script for weekly CBC, BEP and ESR 2. Euvolemic Hyponatremia- pt's BEP revealed a Na of 129 on admission. Pt's corrected Na for hyperglycemia: 131. Pt has been on a thiazide diuretic with low serum osmolality, high urine osmolality with high urine Na >40 indicating inappropriate retention of water as seen in SIADH or interference with NaCl cotransporter which occurs with thiazides. Other causes of euvolemic hyponatremia with elevated urine na and urine osm includes glucocorticoid deficiency and hypothyroidism. - Na is improvin today - TSH and T4: 2.520 and 1.69, respectively - A.M cortisol: 13.0 - pt should follow up with PCP for re-evaluation of thiazide diuretic if hyponatremia 3. H/O DM - start on novology SS w/ accu-checks - Endocrinology consulted. Thank you for recommendations: per Dr. Barclay: - Pt's insulin regimen for home changed to the following: -levemir 15 units BID - SS NovoLog before meals: -B to 150 --> 4 units insulin -B-200 --> 6 units insulin -B-250 --> 7 units insulin -B-300 --> 8 units insulin -B-350 --> 9 units insulin -B-400 --> 10 units insulin - SS Novolog at bedtime (seperate from above): -BG: <250 --> NO insulin -B-300 --> 2 units insulin -B-350 --> 3 units insulin -B-400 --> 4 units insulin - glucose readings have improved with the new regimen- mornin 4. H/O HTN - continue lisinopril 5mg daily - continue hydrochlorathiazide 25 mg daily - follow up with primary 5. H/O HLD - continue atorvastatin 10mg daily DVT PPx: Lovenox Diet: carbohydrate Code: Full Allergies: Coded Allergies: No Known Allergies (05/05/16) Significant Procedures: Pt was taken to the OR by Dr. Jones on 12/08/2016: * open incision and drainage deep to the deep fascia with exposure of the extensor and flexor tendon and tendon sheath multiple sites right foot * open partial second third and fourth ray resection right foot * intraoperative administration of ankle block anesthesia * excisional debridement Pt was taken back to the OR by Dr. Jones on 12/13/2016: * transmetatarsal amputation right foot * delayed primary closure of open surgical wound right * intraoperative administration of ankle block anesthesia * excisional debridement PICC placement Disposition Summary Disposition Principal Diagnosis: RLE Osteomyeltis s/p TMA Additional Diagnosis: Euvolemic Hyponatremia, H/O DM, H/O HTN, H/O HLD Discharge Disposition: home health services Discharge Instructions General Discharge Information Code Status: Full Code Patient's Diet: Regular diabetic diet Patient's Activity: Nonweight bearing on RLE Follow-Up Instructions/Appts: 1. Follow up with Dr. Jones in the wound center in [address] any weight on the right foot 3. Weekly blood work to monitor infection 4. Follow up with endocrinology (Dr. Barclay) in 1 week 5. Check your sugars 4 times a day at home before meals and bedtime. 6. Follow up with your primary care doctor in 1 week. Medications at Discharge Discharge Medications: Stop taking the following medications: Humulin N (Noa) (Humulin N) 100 UNIT/ML VIAL Inject into fatty tissue Every night Qty = 40 Humulin N (Noa) (Humulin N) 100 UNIT/ML VIAL Inject into fatty tissue DAILY Insulin Aspart, Recombinant (Novolog Flexpen) (Unknown Strength) INSULN.PEN Inject into fatty tissue SEE SLIDING SCALE Continue taking these medications: Hydrochlorothiazide (Hydrochlorothiazide) 25 MG TABLET 1 Tablet ORAL DAILY Qty = 90 Comments: NOT GIVEN IN HOSPITAL Lisinopril (Lisinopril) 5 MG TABLET 1 Tablet ORAL DAILY Qty = 90 Comments: Last Taken: 12/15/16 Time: 0800 AM Lovastatin (Lovastatin) 40 MG TABLET 1 Tablet ORAL Every night Qty = 90 Instructions: with food Comments: NOT GIVEN IN HOSPITAL Metformin HCl (Metformin HCl) 500 MG TABLET 1 Tablet ORAL DAILY Qty = 270 Comments: NOT GIVEN IN HOSPTIAL Metformin HCl (Metformin HCl) 500 MG TABLET 2 Tablet ORAL Every night Comments: NOT GIVEN IN HOSPITAL Aspirin (Aspirin*) 81 MG TAB.CHEW 1 Tablet ORAL DAILY Comments: Last Taken: 12/15/16 Time: 0800 AM [place]-3S/Dha/Epa/Fish Oil (Fish Oil 1,200 MG Softgel) 360-1,200MG CAPSULE 1 Capsule ORAL DAILY Comments: NOT GIVEN IN HOSPITAL Multivit-Min/FA/Lycopen/Lutein (Centrum Silver Tablet) 0.4 MG-300 MCG-250 MCG TABLET 1 Tablet ORAL DAILY Comments: NOT GIVEN IN [facility] Ferrous Sulfate (Ferrous Sulfate) 325 MG (65 MG IRON) TABLET 1 Tablet ORAL DAILY Comments: Last Taken: 12/15/16 Time: 0800 AM Ascorbate Calcium (Vitamin C) 500 MG TABLET 1 Tablet ORAL DAILY Comments: NOT GIVEN IN HOSPITAL Start taking the following new medications: Ampicillin Sodium/Sulbactam Na (Unasyn 3 Gm Vial) 3 GRAM VIAL 1 VIAL INTRAVEN EVERY SIX HOURS Qty = 120 Refills = 1 Instructions: ANTIBIOTICS FOR 4 WEEKS. F/U W/ FOR FURTHER ABX. Comments: Last Taken: 12/15/16 Time: 1200 PM Insulin Aspart (Novolog) 100 UNIT/ML VIAL 0 Units Inject into fatty tissue BEFORE MEALS AND AT BEDTIME Qty = 1 Refills = 3 Comments: Before meals: B-150-->4units B-200-->6units B-250-->7units B-300-->8units B-350-->9units B-400-->10units At bedtime (seperate from above): BG:<250-->NOinsulin B-300-->2units B-350-->3units B-400-->4units Last Taken: 12/15/16 Time: 1200 PM 6UNITS GIVEN Insulin Detemir (Levemir) 100 UNIT/ML VIAL 15 Units Inject into fatty tissue TWICE DAILY Qty = 1 Refills = 3 Comments: Last Taken: 12/15/16 Time: 0800 AM Copies To: LÁZARO ALVAREZ,AMOS
[2016-12-15] MEDS ORDERED: LEVEMIR100 UNIT/1 SC (13:21)
== END 2016-12-15 14:07 | disposition home health service (06) | DRG 617 ==
LOC: ERH 11:52 → 2NB 14:24 → ERHI 14:24 → ENRESERV 17:05 → ENTRNSPT 17:43 → 2NB 18:02 → CMPTRNSPT 18:05 → ENTRNSPT 12-08 17:44 → CMPTRNSPT 12-08 18:21 → 2NB 12-09 09:19 → ENTRNSPT 12-13 17:06 → EDTRNSPTSTS 12-13 17:08 → CMPTRNSPT 12-13 17:31 → ENPENDDIS 12-15 13:41 → 2NB 12-15 14:07
PROVIDERS: Physician Assistant; Student in an Organized Health Care Education/Training Program; ADMIT Internal Medicine
PROC: 0J9Q0ZZ Drainage of Right Foot Subcutaneous Tissue and Fascia, Open Approach (ICD-10-PCS; principal; 2016-12-08)
PROC: 0JBQ0ZZ Excision of Right Foot Subcutaneous Tissue and Fascia, Open Approach (ICD-10-PCS; 2016-12-08)
PROC: 0Y6M0ZC Detachment at Right Foot, Partial 3rd Ray, Open Approach (ICD-10-PCS; 2016-12-08)
PROC: 0Y6M0ZD Detachment at Right Foot, Partial 4th Ray, Open Approach (ICD-10-PCS; 2016-12-08)
PROC: 0Y6M0ZB Detachment at Right Foot, Partial 2nd Ray, Open Approach (ICD-10-PCS; 2016-12-08)
PROC: 0Y6M0Z9 Detachment at Right Foot, Partial 1st Ray, Open Approach (ICD-10-PCS; 2016-12-13)
PROC: 0Y6M0ZB Detachment at Right Foot, Partial 2nd Ray, Open Approach (ICD-10-PCS; 2016-12-13)
PROC: 0Y6M0ZC Detachment at Right Foot, Partial 3rd Ray, Open Approach (ICD-10-PCS; 2016-12-13)
PROC: 0Y6M0ZD Detachment at Right Foot, Partial 4th Ray, Open Approach (ICD-10-PCS; 2016-12-13)
PROC: 0Y6M0ZF Detachment at Right Foot, Partial 5th Ray, Open Approach (ICD-10-PCS; 2016-12-13)
PROC: 0QBN0ZZ Excision of Right Metatarsal, Open Approach (ICD-10-PCS; 2016-12-13)
DX: E11.69 Type 2 diabetes mellitus with other specified complication (principal); M86.171 Other acute osteomyelitis, right ankle and foot; M00.9 Pyogenic arthritis, unspecified; I10 Essential (primary) hypertension; L03.115 Cellulitis of right lower limb; E87.1 Hypo-osmolality and hyponatremia; L02.611 Cutaneous abscess of right foot; L97.411 Non-pressure chronic ulcer of right heel and midfoot limited to breakdown of skin; E11.42 Type 2 diabetes mellitus with diabetic polyneuropathy; E11.621 Type 2 diabetes mellitus with foot ulcer; G62.9 Polyneuropathy, unspecified; Z79.4 Long term (current) use of insulin; E78.5 Hyperlipidemia, unspecified; E11.65 Type 2 diabetes mellitus with hyperglycemia; Z87.891 Personal history of nicotine dependence; E11.319 Type 2 diabetes mellitus with unspecified diabetic retinopathy without macular edema
CPT/HCPCS: 2NBSP; 75657; 84133; 84300; 87070; 87075; 36415; 73630-RT; 81001; 82436; 82570; 87040; 87071; 87147; 88305; 88307; 93005; 93010; C1769; J1644; J1650; J1815; J2001; J3490; J7042